=== PATIENT | female | born 1970 | race Caucasian/White ===

== ENCOUNTER 2017-05-22 22:05 | Inpatient (IN) | payer MEDICAID ==
[2017-05-22] MEDS ORDERED: LORazepam 2 MG/ML MDV IVPUSH ONE (22:31)
[2017-05-22] MEDS ORDERED: Thiamine 100 MG in Sodium Chloride 0.9% 100 ML IV ONE (22:31)
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
[2017-05-22] MEDS: Dextrose 5%-0.9% NaCl 1,000 ML IV SCH (22:43)
[2017-05-23] MEDS ORDERED: LORazepam 2 MG/ML MDV IVPUSH PRN (01:54)
[2017-05-23] MEDS ORDERED: Dextrose 5%-0.9% NaCl 1,000 ML IV SCH (02:00)
[2017-05-23] MEDS: Nicotine 7 MG/24 Hr Patch TRDERM SCH ×2 (02:26→09:28)
[2017-05-23] MEDS: Metoclopramide 10 MG/2 ML SDV IVPUSH PRN ×2 (04:41→15:41)
[2017-05-23] MEDS: LORazepam 2 MG/ML MDV IVPUSH PRN ×7 (04:41→23:07)
[2017-05-23] MEDS: Dextrose 5%-0.9% NaCl 1,000 ML IV SCH (04:52)
[2017-05-23] MEDS ORDERED: Polyethylene Glycol 3350 Powder 17 GM Packet PO PRN (06:34)
[2017-05-23] MEDS ORDERED: oxyCODONE 5 MG Tab PO PRN (06:34)
[2017-05-23] MEDS ORDERED: Albuterol/Ipratropium 3.0-0.5 MG/3 ML Neb Soln NEB PRN (06:34)
[2017-05-23] MEDS ORDERED: Ibuprofen 400 MG Tab PO PRN (06:34)
[2017-05-23] MEDS ORDERED: Docusate Sodium 100 MG Cap PO PRN (06:34)
[2017-05-23] MEDS ORDERED: Metoprolol Tartrate 5 MG/5 ML SDV IVPUSH PRN (06:46)
[2017-05-23] MEDS ORDERED: cloNIDine 0.1 MG Tab PO PRN (06:48)
[2017-05-23] MEDS ORDERED: hydrALAZINE 10 MG Tab PO PRN (06:49)
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
[2017-05-23] MEDS ORDERED: Topiramate 25 MG Tab PO SCH (09:00)
[2017-05-23] MEDS: Potassium Chloride 10% 20 MEQ/15 ML Soln 30 ML UD Cup PO SCH ×3 (09:27→17:27)
[2017-05-23] MEDS: Folic Acid 1 MG Tab PO SCH (09:27)
[2017-05-23] MEDS: Thiamine 100 MG Tab PO SCH (09:28)
[2017-05-23] MEDS: Magnesium Oxide 400 MG Tab PO SCH ×2 (09:28→13:27)
[2017-05-23] MEDS: Ondansetron 4 MG/2 ML SDV IV PRN ×2 (09:28→17:32)
[2017-05-23] MEDS: Famotidine 20 MG Tab PO SCH ×2 (09:28→20:19)
[2017-05-23] MEDS: Sodium Chloride 0.9% 1,000 ML IV SCH ×2 (11:45→22:03)
[2017-05-23] MEDS: Multivitamins,Therapeutic Tab PO SCH (11:50)
[2017-05-23] MEDS: QUEtiapine 25 MG Tab PO SCH (20:18)
[2017-05-23] MEDS: Topiramate 25 MG Tab PO SCH (20:19)
[2017-05-23] MEDS: Citalopram 20 MG Tab PO SCH (20:19)
[2017-05-24] MEDS: Temazepam 7.5 MG Cap PO PRN ×2 (00:27→22:46)
[2017-05-24] MEDS: LORazepam 2 MG/ML MDV IVPUSH PRN ×4 (00:29→09:11)
[2017-05-24] MEDS: Sodium Chloride 0.9% 1,000 ML IV SCH ×2 (08:04→18:09)
[2017-05-24] MEDS ORDERED: hydrALAZINE 20 MG/ML SDV IVPUSH PRN (09:06)
[2017-05-24] MEDS: Multivitamins,Therapeutic Tab PO SCH (09:09)
[2017-05-24] MEDS: Topiramate 25 MG Tab PO SCH ×2 (09:09→21:06)
[2017-05-24] MEDS: Thiamine 100 MG Tab PO SCH (09:09)
[2017-05-24] MEDS: Folic Acid 1 MG Tab PO SCH (09:10)
[2017-05-24] MEDS: Citalopram 20 MG Tab PO SCH (09:10)
[2017-05-24] MEDS: Famotidine 20 MG Tab PO SCH ×2 (09:10→21:06)
[2017-05-24] MEDS: Nicotine 7 MG/24 Hr Patch TRDERM SCH (09:17)
[2017-05-24] MEDS ORDERED: Magnesium Sulfate/Water 2 GM in Premix Bag 1 BAG IV ONE (10:00)
[2017-05-24] MEDS: Potassium Chloride 20 MEQ Tab.ER PO SCH ×2 (10:45→21:07)
--- NOTE | 2017-05-24 12:48 | PCM.PN ---
- General Info Date of Service: 05/24/17 Admission Dx/Problem (Free Text): Admission Diagnosis/Problem Admission Diagnosis/Problem Suicidal ideation Subjective Update: Patient seen and examined bedside this morning with the nurse. Patient states that she still feels depressed and "crappy". Vital still remain stable at this time. Functional Status: Reports: Pain Controlled, Tolerating Diet, Ambulating, Urinating. Denies: New Symptoms - Review of Systems General: Reports: Weakness HEENT: Reports: No Symptoms Pulmonary: Reports: No Symptoms Cardiovascular: Reports: No Symptoms Gastrointestinal: Reports: No Symptoms Genitourinary: Reports: No Symptoms Musculoskeletal: Reports: No Symptoms Skin: Reports: No Symptoms Neurological: Reports: No Symptoms Psychiatric: Reports: Depression, Suicidal Ideation - Patient Data Vitals - Most Recent: Last Vital Signs Temp 97.4 F 05/24/17 08:00 Pulse 82 05/24/17 04:00 Resp 16 05/24/17 08:00 BP 142/88 H 05/24/17 08:00 Pulse Ox 92 L 05/24/17 08:00 Weight - Most Recent: 65.771 kg I&O - Last 24 Hours: Intake & Output 05/23/17 05/24/17 05/24/17 22:59 06:59 14:59 Intake Total 2947 1559 200 Output Total 602 700 500 Balance 2345 859 -300 Lab Results Last 24 Hours: Laboratory Results - last 24 hr 05/24/17 05/24/17 Range/Units 05:35 05:35 WBC 4.02 (3.98-10.04) K/mm3 RBC 3.66 L (3.98-5.22) M/mm3 Hgb 12.7 (11.2-15.7) gm/L Hct 37.9 (34.1-44.9) % MCV 103.6 H (79.4-94.8) fl MCH 34.7 H (25.6-32.2) pg MCHC 33.5 (32.2-35.5) g/dl RDW Std Deviation 50.3 H (36.4-46.3) fL Plt Count 77 L (182-369) K/mm3 MPV 11.3 (9.4-12.3) fl Neut % (Auto) 53.0 (34.0-71.1) % Lymph % (Auto) 29.9 (19.3-51.7) % [place] % (Auto) 12.4 (4.7-12.5) % Eos % (Auto) 4.2 (0.7-5.8) Baso % (Auto) 0.5 (0.1-1.2) % Neut # (Auto) 2.13 (1.56-6.13) K/mm3 Lymph # (Auto) 1.20 (1.18-3.74) K/mm3 [place] # (Auto) 0.50 H (0.24-0.36) K/mm3 Eos # (Auto) 0.17 (0.04-0.36) K/mm3 Baso # (Auto) 0.02 (0.01-0.08) K/mm3 Manual Slide Review Abnormal smear Sodium 140 (136-145) mEq/L Potassium 3.4 L (3.5-5.1) mEq/L Chloride 107 (98-107) mEq/L Carbon Dioxide 22 (21-32) mEq/L Anion Gap 14.4 (5-15) BUN 5 L (7-18) mg/dL Creatinine 0.5 L (0.55-1.02) mg/dL Est Cr Clr Drug Dosing 122.69 mL/min Estimated GFR (MDRD) > 60 (>60) mL/min BUN/Creatinine Ratio 10.0 L (14-18) Glucose 83 (74-106) mg/dL Calcium 8.1 L (8.5-10.1) mg/dL Magnesium 1.3 L (1.8-2.4) mg/dl Med Orders - Current: Current Medications Albuterol/Ipratropium (Duoneb 3.0-0.5 Mg/3 Ml) 3 ml NEB Q4H PRN PRN Reason: Shortness Of Breath/wheezing Citalopram Hydrobromide (Celexa) 20 mg PO DAILY [facility] Last Admin: 05/24/17 09:10 Dose: 20 mg Docusate Sodium (Colace) 100 mg PO BID PRN PRN Reason: Constipation Famotidine (Pepcid) 20 mg PO BID [facility] Last Admin: 05/24/17 09:10 Dose: 20 mg Folic Acid (Folic Acid) 1 mg PO DAILY [facility] Last Admin: 05/24/17 09:10 Dose: 1 mg Hydralazine HCl (Apresoline) 10 mg IVPUSH Q2H PRN PRN Reason: Hypertension Sodium Chloride (Normal Saline) 1,000 mls @ 100 mls/hr IV ASDIRECTED [facility] Last Admin: 05/24/17 08:04 Dose: 100 mls/hr Ibuprofen (Motrin) 400 mg PO Q6H PRN PRN Reason: Pain (mild 1-3) Last Admin: 05/24/17 04:29 Dose: 400 mg Lorazepam (Ativan) 0 mg PO ASDIRECTED [facility] PRN Reason: Protocol Metoclopramide HCl (Reglan) 7.5 mg IVPUSH Q6H PRN PRN Reason: Nausea/Vomiting Last Admin: 05/23/17 15:41 Dose: 7.5 mg Metoprolol Tartrate (Lopressor) 5 mg IVPUSH Q4H PRN PRN Reason: Tachycardia Multivitamins (Thera) 1 each PO DAILY [facility] Last Admin: 05/24/17 09:09 Dose: 1 each Nicotine (Habitrol) 7 mg TRDERM DAILY [facility] Last Admin: 05/24/17 09:17 Dose: Not Given Ondansetron HCl (Zofran Odt) 4 mg PO Q4H PRN PRN Reason: nausea, able to take PO Ondansetron HCl (Zofran) 4 mg IV Q4H PRN PRN Reason: Nausea/Vomiting Last Admin: 05/23/17 17:32 Dose: 4 mg Polyethylene Glycol (Miralax) 17 gm PO DAILY PRN PRN Reason: Constipation Potassium Chloride (Klor-Con M20) 20 meq PO BID [facility] Stop: 05/25/17 21:01 Last Admin: 05/24/17 10:45 Dose: 20 meq Quetiapine Fumarate (Seroquel) 50 mg PO BEDTIME [facility] Last Admin: 05/23/17 20:18 Dose: 50 mg Senna/Docusate Sodium (Senna Plus) 1 tab PO BID PRN PRN Reason: Constipation Temazepam (Restoril) 7.5 mg PO BEDTIME PRN PRN Reason: Sleep Last Admin: 05/24/17 00:27 Dose: 7.5 mg Thiamine HCl (Vitamin B-1) 100 mg PO DAILY [facility] Last Admin: 05/24/17 09:09 Dose: 100 mg Topiramate (Topamax) 25 mg PO BID [facility] Last Admin: 05/24/17 09:09 Dose: 25 mg Discontinued Medications Clonidine HCl (Catapres) 0.1 mg PO Q4H PRN PRN Reason: Agitation Last Admin: 05/23/17 20:18 Dose: 0.1 mg Hydralazine HCl (Apresoline) 10 mg PO Q4H PRN PRN Reason: Hypertension Dextrose/Sodium Chloride (Dextrose 5%-Normal Saline) 1,000 mls @ 150 mls/hr IV ASDIRECTED [facility] Last Admin: 05/23/17 04:52 Dose: 150 mls/hr Thiamine HCl 100 mg/ Sodium (Chloride) 101 mls @ 202 mls/hr IV ONETIME ONE Stop: 05/22/17 22:32 Last Admin: 05/22/17 22:48 Dose: 202 mls/hr Dextrose/Sodium Chloride (Dextrose 5%-Normal Saline) 1,000 mls @ 150 mls/hr IV ASDIRECTED [facility] Magnesium Sulfate 2 gm/ Premix 50 mls @ 25 mls/hr IV ONETIME ONE Stop: 05/24/17 11:59 Last Admin: 05/24/17 10:46 Dose: 25 mls/hr Lorazepam (Ativan) 1 mg IVPUSH ONETIME ONE Stop: 05/22/17 22:32 Last Admin: 05/22/17 22:41 Dose: 1 mg Lorazepam (Ativan) 1 mg IVPUSH Q2H PRN PRN Reason: Withdrawal Symptoms Last Admin: 05/23/17 02:25 Dose: 1 mg Lorazepam (Ativan) 1 - 3 mg IVPUSH Q1H PRN; Protocol PRN Reason: Withdrawl Symptoms Last Admin: 05/24/17 09:11 Dose: 1 mg Magnesium Oxide (Magnesium Oxide) 400 mg PO Q4HR [facility] Stop: 05/23/17 13:01 Last Admin: 05/23/17 13:27 Dose: 400 mg Oxycodone HCl (Oxycodone) 5 mg PO Q4H PRN PRN Reason: Pain (moderate 4-6) Potassium Chloride (Potassium Chloride) 40 meq PO Q4HR [facility] Stop: 05/23/17 17:01 Last Admin: 05/23/17 17:27 Dose: 40 meq Topiramate (Topamax) 25 mg PO BID [facility] - Exam General: Alert, Oriented HEENT: Pupils Equal, Pupils Reactive, EOMI, Mucous Membr. Moist/[place] Neck: Supple Lungs: Clear to Auscultation, Normal Respiratory Effort Cardiovascular: Regular Rate, Regular Rhythm GI/Abdominal Exam: Normal Bowel Sounds, Soft, Non-Tender, No Organomegaly, No Distention, No Abnormal Bruit, No Mass, Pelvis Stable (Female) Exam: Deferred Back Exam: Normal Inspection, Full Range of Motion Extremities: Normal Inspection, Normal Range of Motion, Non-Tender, No Pedal Edema, Normal Capillary Refill Peripheral Pulses: 2+: Carotid (L), Carotid (R), Brachial (L), Brachial (R), Radial (L), Radial (R), Femoral (L), Femoral (R), Popliteal (L), Popliteal (R), Posterior Tibial (L), Posterior Tibial (R), Dorsalis Pedis (L), Dorsalis Pedis ( R) Skin: Warm, Dry, Intact Neurological: No New Focal Deficit Psy/Mental Status: Alert, Depressed, Suicidal Ideation, Withdrawal Symptoms - Problem List & Annotations (1) Alcohol withdrawal syndrome SNOMED Code(s): 964860158 Code(s): F10.239 - ALCOHOL DEPENDENCE WITH WITHDRAWAL, UNSPECIFIED Status: Acute Priority: High Current Visit: Yes (2) Depression with suicidal ideation SNOMED Code(s): 92015419 Code(s): F32.9 - MAJOR DEPRESSIVE DISORDER, SINGLE EPISODE, UNSPECIFIED; R45.851 - SUICIDAL IDEATIONS Status: Acute Priority: High Current Visit: Yes (3) Hypokalemia SNOMED Code(s): 83113142 Code(s): E87.6 - HYPOKALEMIA Status: Acute Priority: High Current Visit : Yes (4) Hypomagnesemia SNOMED Code(s): 815780141 Code(s): E83.42 - HYPOMAGNESEMIA Status: Acute Priority: High Current Visit: Yes - Problem List Review Problem List Initiated/Reviewed/Updated: Yes - My Orders Last 24 Hours: My Active Orders 05/24/17 09:06 hydrALAZINE [Apresoline] 10 mg IVPUSH Q2H PRN 05/24/17 09:09 CIWAA Assessment [RC] Q4H Notify Provider [RC] PRN 05/24/17 09:15 LORazepam [Ativan] See Protocol PO ASDIRECTED 05/24/17 09:45 Potassium Chloride [Klor-Con M20] 20 meq PO BID - Assessment Assessment:: 1. Alcohol withdrawal syndrome. 2. Suicidal ideation. 3. Hypokalemia. 4. Hypomagnesemia. 5. Chronic alcohol dependence. 6. Generalized anxiety disorder. - Plan Plan:: 1. Continue ICU management with one-to-one observation. For suicidal precautions. 2. Continue CIWA protocol according to CIWA scale. 3. Seizure precautions. 4. DVT prophylaxis with Lovenox. 5. Substance abuse counselor consults in chart. 6. Psychiatric consult with Dr. Mortensen. 7. Discharge planning. 8. Code Status: Full Code
--- NOTE | 2017-05-24 12:50 | CONS ---
CONSULTING PHYSICIAN: Liam Mortensen MD DATE OF CONSULTATION: 05/23/2017 This is a 60-minute inpatient clinical event. IDENTIFICATION: The patient is a 47-year-old female who was admitted to the [facility] in [place], [place] on 05/22/2017. She is seen for psychiatric evaluation. CHIEF COMPLAINT: "We had a couple of people in our family recently. It has been really difficult for me." HISTORY OF PRESENT ILLNESS: The patient is a 47-year-old female, admitted to the [facility] MICU on 05/22/2017 with a BAL of 0.36. There were concerns that the patient had become suicidal and after being evaluated in the ER was subsequently admitted and placed on the MICU. The patient is stating she has been drinking about 2 bottles of wine per day. She states "I drink because I feel depressed and anxious and have panic attacks." The patient states that she sleeps poorly. She is denying that she is suicidal or homicidal, but staffs are reporting that part of the reason she was admitted is that she had called police and stated that she was thinking of killing herself. Again, she is denying that she is suicidal or homicidal on the unit. She denies any psychotic, delusional, or paranoid symptoms. She is alert and oriented x2 to person and place, but does not know the date with clarity. She states that she has been on Celexa in the past and this medication has worked to help with her mood and she states that she would "like to do something" to help her feel better. She also acknowledges her drinking is a problem and she states that she did have a period of sobriety in 2014 and she felt better when she was not drinking and she is open to options for going for treatment at this point in time. MEDICATIONS: At the time of presentation is none. ALLERGIES: No known drug allergies. PAST MEDICAL HISTORY: 1. Alcohol-related seizure x1 in the past back in 2014. 2. History of jaundice secondary to alcoholic hepatitis. REVIEW OF SYSTEMS: Aside from neuro and GI, all other major organ systems are negative at this point in time for acute difficulties or complications. FAMILY PSYCHIATRIC AND CD HISTORY: The patient reports father had a history of anxiety and depression. She had a sister who had a history of anxiety and bipolar affective disease and also committed suicide when the patient was still 26 years of age. She still thinks about this event and the loss of her sister quite a bit per patient report. PAST PSYCHIATRIC AND CD HISTORY: The patient denies any previous psychiatric hospitalizations. Reports 2 chemical dependency treatment for alcohol. Longest sobriety was back in 2015 for a few months after treatment. She reports that she has most recently been using 2 bottles of wine per day. Does have detox admissions in the past. Denies ever having attended AA. Reports 2 suicide attempts in the past, but this is when she was very young. Denies any self-injurious behaviors or eating disorder history. PAST PSYCHIATRIC DIAGNOSIS: Includes PTSD and bipolar affective disease. PAST PSYCHIATRIC MEDICATIONS: Include Cymbalta which was ineffective. Celexa did work. Ativan and Paxil did not work. SOCIAL HISTORY: The patient is born in [place], raised in [place], [place]. She is 4th of 5 siblings. The patient's parents were throughout her childhood and adolescent. Father worked in [employer]. Mother was a computer systems architect. The patient's highest level of education is a high school diploma. She had been working in the [employer] business. She has been x2, x2. Has 1 child from each of the marriages. She has been in current relationship for 6 months. Her boyfriend works in construction. She has been living in [place] for the past 2 months after moving out to [place] from [place] with her boyfriend. Denies any prior service or current legal difficulties. She does not have a gnosticism. Denies any interest at this point in time. MENTAL STATUS EXAM: The patient is a 47-year-old white female in no apparent distress. Speech is of regular rate and rhythm. The patient is cognitively oriented x2 to person and place, but not to date. Psychomotor activity is within normal limits. There is no abnormal motor movements or tics observed. Gait and station are not observed. This patient is bedbound during the course of the interview. Mood is depressed and tired. Affect consistent with stated mood, but cooperative overall for the purposes of the inpatient psychiatric consult. There is no behavioral or stated evidence of acute suicidal or homicidal ideation. No acute psychotic, delusional, or paranoid symptoms. Thought processes significant for some thought blocking. However, there are no acute manic symptoms or loose associations evident. Judgment and insight appear somewhat impaired at the moment secondary to her poor cognition and withdrawal process. The patient's experience in motivation for help however appears fair to good. VITALS: 133/90, 93, 22, 98.6 degrees. IMPRESSION: Stella I. 1. Alcohol dependence, F10.20. 2. Major depressive disorder, recurrent, F33.3. 3. Anxiety disorder, NOS F41.9. 4. Rule out PTSD. Stella II: None. Stella III. 1. Symptoms of alcohol withdrawal. 2. Alcohol-related seizure x1 in the past in 2014. 3. History of jaundice secondary to probable alcohol hepatitis per patient report. Stella IV: Severe. Stella V: 50. PLAN: 1. Sobriety. 2. Begin trial of Celexa 20 mg at bedtime to help with mood. 3. Begin Seroquel 50 mg at bedtime to help with clarity of thought, anxiety reduction, sleep initiation and maintenance. 4. Begin Topamax 25 mg b.i.d. for mood stability and seizure prophylaxis. 5. Gastric supplementation. 6. Thiamine supplementation. 7. Ativan per [facility] protocol. 8. AA rep to visit the patient while on the unit. 9. Pastoral guidance. 10.CD consult to assess the patient and research potential treatment options for the patient. 11.Continue one to one as patient had reported suicidality prior to admission until patient can be further stabilized and re-eval by Primary Medical Treatment Team. 12.We will continue to follow up with the patient on as needed basis while she remains on the inpatient MICU. 13.We will follow up with the patient sooner if there are complications in the interim. 14.Recommend that when patient is discharged back to the community, she will follow up with Outpatient Psychiatry to assess her overall function efficacy of her current psychiatric medication regimen. 15.Crisis plan is in place. [facility] /[id number]
[2017-05-24] MEDS: Ondansetron 4 MG/2 ML SDV IV PRN (14:34)
[2017-05-24] MEDS: LORazepam 1 MG Tab PO SCH ×2 (14:47→18:09)
[2017-05-24] MEDS ORDERED: LORazepam 1 MG Tab PO ONE (20:44)
[2017-05-24] MEDS: QUEtiapine 25 MG Tab PO SCH (21:06)
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
[2017-05-24] MEDS ORDERED: LORazepam 2 MG/ML MDV IVPUSH ONE (22:37)
[2017-05-24] MEDS ORDERED: LORazepam 2 MG/ML MDV ONE (22:38)
[2017-05-24] MEDS: Ondansetron 4 MG Tab.DIS PO PRN (22:47)
[2017-05-25] MEDS ORDERED: LORazepam 2 MG/ML MDV IVPUSH ONE (00:32)
[2017-05-25] MEDS: Thiamine 100 MG Tab PO SCH (09:13)
[2017-05-25] MEDS: Folic Acid 1 MG Tab PO SCH (09:14)
[2017-05-25] MEDS: Famotidine 20 MG Tab PO SCH ×2 (09:14→20:54)
[2017-05-25] MEDS: Citalopram 20 MG Tab PO SCH (09:14)
[2017-05-25] MEDS: Topiramate 25 MG Tab PO SCH ×2 (09:14→20:54)
[2017-05-25] MEDS: Potassium Chloride 20 MEQ Tab.ER PO SCH ×2 (09:14→20:54)
[2017-05-25] MEDS: Multivitamins,Therapeutic Tab PO SCH (09:14)
[2017-05-25] MEDS: Nicotine 7 MG/24 Hr Patch TRDERM SCH (09:15)
--- NOTE | 2017-05-25 13:17 | PCM.PN ---
- General Info Date of Service: 05/25/17 Functional Status: Reports: Ambulating - Review of Systems General: Reports: No Symptoms HEENT: Reports: No Symptoms Pulmonary: Reports: No Symptoms Cardiovascular: Reports: No Symptoms Gastrointestinal: Reports: No Symptoms Genitourinary: Reports: No Symptoms Musculoskeletal: Reports: No Symptoms Skin: Reports: No Symptoms Neurological: Reports: No Symptoms Psychiatric: Reports: Anxiety - Patient Data Vitals - Most Recent: Last Vital Signs Temp 36.4 C 05/25/17 09:20 Pulse 77 05/25/17 09:20 Resp 18 05/25/17 03:16 BP 127/81 05/25/17 09:20 Pulse Ox 95 05/25/17 09:20 Weight - Most Recent: 70.477 kg I&O - Last 24 Hours: Intake & Output 05/24/17 05/25/17 05/25/17 22:59 06:59 14:59 Intake Total 1941 784 320 Output Total 1900 400 Balance 41 384 320 Lab Results Last 24 Hours: Laboratory Results - last 24 hr 05/25/17 05/25/17 Range/Units 04:50 04:50 WBC 4.46 (3.98-10.04) K/mm3 RBC 3.85 L (3.98-5.22) M/mm3 Hgb 13.1 (11.2-15.7) gm/L Hct 39.1 (34.1-44.9) % MCV 101.6 H (79.4-94.8) fl MCH 34.0 H (25.6-32.2) pg MCHC 33.5 (32.2-35.5) g/dl RDW Std Deviation 49.2 H (36.4-46.3) fL Plt Count 92 L (182-369) K/mm3 MPV 11.2 (9.4-12.3) fl Neut % (Auto) 51.7 (34.0-71.1) % Lymph % (Auto) 29.8 (19.3-51.7) % [place] % (Auto) 14.3 H (4.7-12.5) % Eos % (Auto) 3.6 (0.7-5.8) Baso % (Auto) 0.4 (0.1-1.2) % Neut # (Auto) 2.30 (1.56-6.13) K/mm3 Lymph # (Auto) 1.33 (1.18-3.74) K/mm3 [place] # (Auto) 0.64 H (0.24-0.36) K/mm3 Eos # (Auto) 0.16 (0.04-0.36) K/mm3 Baso # (Auto) 0.02 (0.01-0.08) K/mm3 Manual Slide Review Abnormal smear Sodium 140 (136-145) mEq/L Potassium 3.8 (3.5-5.1) mEq/L Chloride 108 H (98-107) mEq/L Carbon Dioxide 20 L (21-32) mEq/L Anion Gap 15.8 H (5-15) BUN 6 L (7-18) mg/dL Creatinine 0.6 (0.55-1.02) mg/dL Est Cr Clr Drug Dosing 102.25 mL/min Estimated GFR (MDRD) > 60 (>60) mL/min BUN/Creatinine Ratio 10.0 L (14-18) Glucose 84 (74-106) mg/dL Calcium 8.5 (8.5-10.1) mg/dL Magnesium 1.8 (1.8-2.4) mg/dl Med Orders - Current: Current Medications Albuterol/Ipratropium (Duoneb 3.0-0.5 Mg/3 Ml) 3 ml NEB Q4H PRN PRN Reason: Shortness Of Breath/wheezing Citalopram Hydrobromide (Celexa) 20 mg PO DAILY [facility] Last Admin: 05/25/17 09:14 Dose: 20 mg Docusate Sodium (Colace) 100 mg PO BID PRN PRN Reason: Constipation Famotidine (Pepcid) 20 mg PO BID [facility] Last Admin: 05/25/17 09:14 Dose: 20 mg Folic Acid (Folic Acid) 1 mg PO DAILY [facility] Last Admin: 05/25/17 09:14 Dose: 1 mg Hydralazine HCl (Apresoline) 10 mg IVPUSH Q2H PRN PRN Reason: Hypertension Ibuprofen (Motrin) 400 mg PO Q6H PRN PRN Reason: Pain (mild 1-3) Last Admin: 05/24/17 04:29 Dose: 400 mg Lorazepam (Ativan) 0 mg PO ASDIRECTED [facility] PRN Reason: Protocol Last Admin: 05/24/17 18:09 Dose: 1 mg Metoclopramide HCl (Reglan) 7.5 mg IVPUSH Q6H PRN PRN Reason: Nausea/Vomiting Last Admin: 05/23/17 15:41 Dose: 7.5 mg Metoprolol Tartrate (Lopressor) 5 mg IVPUSH Q4H PRN PRN Reason: Tachycardia Multivitamins (Thera) 1 each PO DAILY [facility] Last Admin: 05/25/17 09:14 Dose: 1 each Nicotine (Habitrol) 7 mg TRDERM DAILY [facility] Last Admin: 05/25/17 09:15 Dose: Not Given Ondansetron HCl (Zofran Odt) 4 mg PO Q4H PRN PRN Reason: nausea, able to take PO Last Admin: 05/24/17 22:47 Dose: 4 mg Ondansetron HCl (Zofran) 4 mg IV Q4H PRN PRN Reason: Nausea/Vomiting Last Admin: 05/24/17 14:34 Dose: 4 mg Polyethylene Glycol (Miralax) 17 gm PO DAILY PRN PRN Reason: Constipation Potassium Chloride (Klor-Con M20) 20 meq PO BID [facility] Stop: 05/25/17 21:01 Last Admin: 05/25/17 09:14 Dose: 20 meq Quetiapine Fumarate (Seroquel) 50 mg PO BEDTIME [facility] Last Admin: 05/24/17 21:06 Dose: 50 mg Senna/Docusate Sodium (Senna Plus) 1 tab PO BID PRN PRN Reason: Constipation Temazepam (Restoril) 7.5 mg PO BEDTIME PRN PRN Reason: Sleep Last Admin: 05/24/17 22:46 Dose: 7.5 mg Thiamine HCl (Vitamin B-1) 100 mg PO DAILY [facility] Last Admin: 05/25/17 09:13 Dose: 100 mg Topiramate (Topamax) 25 mg PO BID [facility] Last Admin: 05/25/17 09:14 Dose: 25 mg Discontinued Medications Clonidine HCl (Catapres) 0.1 mg PO Q4H PRN PRN Reason: Agitation Last Admin: 05/23/17 20:18 Dose: 0.1 mg Hydralazine HCl (Apresoline) 10 mg PO Q4H PRN PRN Reason: Hypertension Dextrose/Sodium Chloride (Dextrose 5%-Normal Saline) 1,000 mls @ 150 mls/hr IV ASDIRECTED [facility] Last Admin: 05/23/17 04:52 Dose: 150 mls/hr Thiamine HCl 100 mg/ Sodium (Chloride) 101 mls @ 202 mls/hr IV ONETIME ONE Stop: 05/22/17 22:32 Last Admin: 05/22/17 22:48 Dose: 202 mls/hr Dextrose/Sodium Chloride (Dextrose 5%-Normal Saline) 1,000 mls @ 150 mls/hr IV ASDIRECTED [facility] Sodium Chloride (Normal Saline) 1,000 mls @ 100 mls/hr IV ASDIRECTED [facility] Last Infusion: 05/24/17 23:06 Dose: 0 mls/hr Magnesium Sulfate 2 gm/ Premix 50 mls @ 25 mls/hr IV ONETIME ONE Stop: 05/24/17 11:59 Last Admin: 05/24/17 10:46 Dose: 25 mls/hr Lorazepam (Ativan) 1 mg IVPUSH ONETIME ONE Stop: 05/22/17 22:32 Last Admin: 05/22/17 22:41 Dose: 1 mg Lorazepam (Ativan) 1 mg IVPUSH Q2H PRN PRN Reason: Withdrawal Symptoms Last Admin: 05/23/17 02:25 Dose: 1 mg Lorazepam (Ativan) 1 - 3 mg IVPUSH Q1H PRN; Protocol PRN Reason: Withdrawl Symptoms Last Admin: 05/24/17 09:11 Dose: 1 mg Lorazepam (Ativan) 1 mg PO ONETIME ONE Stop: 05/24/17 20:45 Last Admin: 05/24/17 21:06 Dose: 1 mg Lorazepam (Ativan) 2 mg IVPUSH ONETIME ONE Stop: 05/24/17 22:38 Last Admin: 05/24/17 22:47 Dose: 2 mg Lorazepam (Ativan) Confirm Administered Dose 2 mg .ROUTE .STK-MED ONE Stop: 05/24/17 22:39 Last Admin: 05/24/17 23:06 Dose: Not Given Lorazepam (Ativan) 2 mg IVPUSH ONETIME ONE Stop: 05/25/17 00:33 Last Admin: 05/25/17 00:44 Dose: 2 mg Magnesium Oxide (Magnesium Oxide) 400 mg PO Q4HR [facility] Stop: 05/23/17 13:01 Last Admin: 05/23/17 13:27 Dose: 400 mg Oxycodone HCl (Oxycodone) 5 mg PO Q4H PRN PRN Reason: Pain (moderate 4-6) Potassium Chloride (Potassium Chloride) 40 meq PO Q4HR [facility] Stop: 05/23/17 17:01 Last Admin: 05/23/17 17:27 Dose: 40 meq Topiramate (Topamax) 25 mg PO BID [facility] - Exam Quality Assessment: DVT Prophylaxis General: Alert, Oriented, Cooperative HEENT: Pupils Equal, Pupils Reactive Neck: Supple, Trachea Midline Lungs: Clear to Auscultation, Normal Respiratory Effort Cardiovascular: Regular Rate GI/Abdominal Exam: Normal Bowel Sounds, Soft, Non-Tender, No Organomegaly (Female) Exam: Deferred Back Exam: Normal Inspection Extremities: Normal Inspection Skin: Warm Neurological: No New Focal Deficit, Normal Speech Psy/Mental Status: Alert - Problem List Review Problem List Initiated/Reviewed/Updated: Yes - Assessment Assessment:: 1. Alcohol withdrawal syndrome. 2. Suicidal ideation. 3. Hypokalemia. 4. Hypomagnesemia. 5. Chronic alcohol dependence. 6. Generalized anxiety disorder. - Plan Plan:: 1. Continue ICU management with one-to-one observation. For suicidal precautions. 2. Continue CIWA protocol according to CIWA scale. 3. Seizure precautions. 4. DVT prophylaxis with Lovenox. 5. Substance abuse counselor consults in chart. 6. Psychiatric consult with Dr. Mortensen. 7. Discharge planning. 8. Code Status: Full Code
[2017-05-25] MEDS ORDERED: Magnesium Sulfate/Water 2 GM in Premix Bag 1 BAG IV SCH (17:15)
[2017-05-25] MEDS: QUEtiapine 25 MG Tab PO SCH (20:53)
[2017-05-26] MEDS: Folic Acid 1 MG Tab PO SCH (09:19)
[2017-05-26] MEDS: Citalopram 20 MG Tab PO SCH (09:19)
[2017-05-26] MEDS: Nicotine 7 MG/24 Hr Patch TRDERM SCH (09:20)
[2017-05-26] MEDS: Multivitamins,Therapeutic Tab PO SCH (09:20)
[2017-05-26] MEDS: Famotidine 20 MG Tab PO SCH ×2 (09:20→20:52)
[2017-05-26] MEDS: Topiramate 25 MG Tab PO SCH ×2 (09:21→20:52)
[2017-05-26] MEDS: Thiamine 100 MG Tab PO SCH (09:21)
--- NOTE | 2017-05-26 12:25 | PCM.PN ---
- General Info Date of Service: 05/26/17 Functional Status: Reports: Tolerating Diet - Review of Systems General: Reports: No Symptoms HEENT: Reports: No Symptoms Pulmonary: Reports: No Symptoms Cardiovascular: Reports: No Symptoms Gastrointestinal: Reports: No Symptoms Genitourinary: Reports: No Symptoms Musculoskeletal: Reports: No Symptoms Skin: Reports: No Symptoms Neurological: Reports: No Symptoms Psychiatric: Reports: No Symptoms - Patient Data Vitals - Most Recent: Last Vital Signs Temp 36.6 C 05/26/17 09:12 Pulse 74 05/26/17 09:12 Resp 16 05/26/17 09:12 BP 104/85 05/26/17 09:12 Pulse Ox 92 L 05/26/17 09:12 Weight - Most Recent: 62.794 kg I&O - Last 24 Hours: Intake & Output 05/25/17 05/26/17 05/26/17 22:59 06:59 14:59 Intake Total 41 200 120 Output Total 300 Balance -259 200 120 Lab Results Last 24 Hours: Laboratory Results - last 24 hr 05/26/17 05/26/17 Range/Units 07:15 07:15 WBC 5.12 (3.98-10.04) K/mm3 RBC 4.00 (3.98-5.22) M/mm3 Hgb 13.8 (11.2-15.7) gm/L Hct 40.4 (34.1-44.9) % MCV 101.0 H (79.4-94.8) fl MCH 34.5 H (25.6-32.2) pg MCHC 34.2 (32.2-35.5) g/dl RDW Std Deviation 48.9 H (36.4-46.3) fL Plt Count 102 L (182-369) K/mm3 MPV 10.9 (9.4-12.3) fl Neut % (Auto) 54.5 (34.0-71.1) % Lymph % (Auto) 25.4 (19.3-51.7) % [place] % (Auto) 14.6 H (4.7-12.5) % Eos % (Auto) 4.7 (0.7-5.8) Baso % (Auto) 0.6 (0.1-1.2) % Neut # (Auto) 2.79 (1.56-6.13) K/mm3 Lymph # (Auto) 1.30 (1.18-3.74) K/mm3 [place] # (Auto) 0.75 H (0.24-0.36) K/mm3 Eos # (Auto) 0.24 (0.04-0.36) K/mm3 Baso # (Auto) 0.03 (0.01-0.08) K/mm3 Sodium 140 (136-145) mEq/L Potassium 3.6 (3.5-5.1) mEq/L Chloride 108 H (98-107) mEq/L Carbon Dioxide 20 L (21-32) mEq/L Anion Gap 15.6 H (5-15) BUN 10 (7-18) mg/dL Creatinine 0.6 (0.55-1.02) mg/dL Est Cr Clr Drug Dosing 102.25 mL/min Estimated GFR (MDRD) > 60 (>60) mL/min BUN/Creatinine Ratio 16.7 (14-18) Glucose 85 (74-106) mg/dL Calcium 8.5 (8.5-10.1) mg/dL Magnesium 1.9 (1.8-2.4) mg/dl Med Orders - Current: Current Medications Albuterol/Ipratropium (Duoneb 3.0-0.5 Mg/3 Ml) 3 ml NEB Q4H PRN PRN Reason: Shortness Of Breath/wheezing Citalopram Hydrobromide (Celexa) 20 mg PO DAILY [facility] Last Admin: 05/26/17 09:19 Dose: 20 mg Docusate Sodium (Colace) 100 mg PO BID PRN PRN Reason: Constipation Famotidine (Pepcid) 20 mg PO BID [facility] Last Admin: 05/26/17 09:20 Dose: 20 mg Folic Acid (Folic Acid) 1 mg PO DAILY [facility] Last Admin: 05/26/17 09:19 Dose: 1 mg Hydralazine HCl (Apresoline) 10 mg IVPUSH Q2H PRN PRN Reason: Hypertension Ibuprofen (Motrin) 400 mg PO Q6H PRN PRN Reason: Pain (mild 1-3) Last Admin: 05/24/17 04:29 Dose: 400 mg Metoprolol Tartrate (Lopressor) 5 mg IVPUSH Q4H PRN PRN Reason: Tachycardia Multivitamins (Thera) 1 each PO DAILY [facility] Last Admin: 05/26/17 09:20 Dose: 1 each Nicotine (Habitrol) 7 mg TRDERM DAILY [facility] Last Admin: 05/26/17 09:20 Dose: Not Given Ondansetron HCl (Zofran Odt) 4 mg PO Q4H PRN PRN Reason: nausea, able to take PO Last Admin: 05/24/17 22:47 Dose: 4 mg Polyethylene Glycol (Miralax) 17 gm PO DAILY PRN PRN Reason: Constipation Quetiapine Fumarate (Seroquel) 50 mg PO BEDTIME [facility] Last Admin: 05/25/17 20:53 Dose: 50 mg Senna/Docusate Sodium (Senna Plus) 1 tab PO BID PRN PRN Reason: Constipation Temazepam (Restoril) 7.5 mg PO BEDTIME PRN PRN Reason: Sleep Last Admin: 05/24/17 22:46 Dose: 7.5 mg Thiamine HCl (Vitamin B-1) 100 mg PO DAILY [facility] Last Admin: 05/26/17 09:21 Dose: 100 mg Topiramate (Topamax) 25 mg PO BID [facility] Last Admin: 05/26/17 09:21 Dose: 25 mg Discontinued Medications Clonidine HCl (Catapres) 0.1 mg PO Q4H PRN PRN Reason: Agitation Last Admin: 05/23/17 20:18 Dose: 0.1 mg Hydralazine HCl (Apresoline) 10 mg PO Q4H PRN PRN Reason: Hypertension Dextrose/Sodium Chloride (Dextrose 5%-Normal Saline) 1,000 mls @ 150 mls/hr IV ASDIRECTED [facility] Last Admin: 05/23/17 04:52 Dose: 150 mls/hr Thiamine HCl 100 mg/ Sodium (Chloride) 101 mls @ 202 mls/hr IV ONETIME ONE Stop: 05/22/17 22:32 Last Admin: 05/22/17 22:48 Dose: 202 mls/hr Dextrose/Sodium Chloride (Dextrose 5%-Normal Saline) 1,000 mls @ 150 mls/hr IV ASDIRECTED [facility] Sodium Chloride (Normal Saline) 1,000 mls @ 100 mls/hr IV ASDIRECTED [facility] Last Infusion: 05/24/17 23:06 Dose: 0 mls/hr Magnesium Sulfate 2 gm/ Premix 50 mls @ 25 mls/hr IV ONETIME ONE Stop: 05/24/17 11:59 Last Admin: 05/24/17 10:46 Dose: 25 mls/hr Magnesium Sulfate 2 gm/ Premix 50 mls @ 25 mls/hr IV ASDIRECTED [facility] Stop: 05/25/17 19:14 Last Admin: 05/25/17 17:27 Dose: 25 mls/hr Lorazepam (Ativan) 1 mg IVPUSH ONETIME ONE Stop: 05/22/17 22:32 Last Admin: 05/22/17 22:41 Dose: 1 mg Lorazepam (Ativan) 1 mg IVPUSH Q2H PRN PRN Reason: Withdrawal Symptoms Last Admin: 05/23/17 02:25 Dose: 1 mg Lorazepam (Ativan) 1 - 3 mg IVPUSH Q1H PRN; Protocol PRN Reason: Withdrawl Symptoms Last Admin: 05/24/17 09:11 Dose: 1 mg Lorazepam (Ativan) 0 mg PO ASDIRECTED [facility] PRN Reason: Protocol Last Admin: 05/24/17 18:09 Dose: 1 mg Lorazepam (Ativan) 1 mg PO ONETIME ONE Stop: 05/24/17 20:45 Last Admin: 05/24/17 21:06 Dose: 1 mg Lorazepam (Ativan) 2 mg IVPUSH ONETIME ONE Stop: 05/24/17 22:38 Last Admin: 05/24/17 22:47 Dose: 2 mg Lorazepam (Ativan) Confirm Administered Dose 2 mg .ROUTE .STK-MED ONE Stop: 05/24/17 22:39 Last Admin: 05/24/17 23:06 Dose: Not Given Lorazepam (Ativan) 2 mg IVPUSH ONETIME ONE Stop: 05/25/17 00:33 Last Admin: 05/25/17 00:44 Dose: 2 mg Magnesium Oxide (Magnesium Oxide) 400 mg PO Q4HR [facility] Stop: 05/23/17 13:01 Last Admin: 05/23/17 13:27 Dose: 400 mg Metoclopramide HCl (Reglan) 7.5 mg IVPUSH Q6H PRN PRN Reason: Nausea/Vomiting Last Admin: 05/23/17 15:41 Dose: 7.5 mg Ondansetron HCl (Zofran) 4 mg IV Q4H PRN PRN Reason: Nausea/Vomiting Last Admin: 05/24/17 14:34 Dose: 4 mg Oxycodone HCl (Oxycodone) 5 mg PO Q4H PRN PRN Reason: Pain (moderate 4-6) Potassium Chloride (Potassium Chloride) 40 meq PO Q4HR [facility] Stop: 05/23/17 17:01 Last Admin: 05/23/17 17:27 Dose: 40 meq Potassium Chloride (Klor-Con M20) 20 meq PO BID [facility] Stop: 05/25/17 21:01 Last Admin: 05/25/17 20:54 Dose: 20 meq Topiramate (Topamax) 25 mg PO BID [facility] - Exam Quality Assessment: DVT Prophylaxis General: Alert, Oriented, No Acute Distress HEENT: Pupils Equal, Pupils Reactive, EOMI Neck: Supple, Trachea Midline, No JVD Lungs: Normal Respiratory Effort Cardiovascular: Regular Rate, Regular Rhythm GI/Abdominal Exam: Normal Bowel Sounds, Soft, Non-Tender, No Organomegaly, No Distention (Female) Exam: Deferred Back Exam: Normal Inspection Extremities: Normal Inspection Skin: Warm Neurological: No New Focal Deficit Psy/Mental Status: Alert - Problem List Review Problem List Initiated/Reviewed/Updated: Yes - Assessment Assessment:: 1. Alcohol withdrawal syndrome. 2. Suicidal ideation. 3. Hypokalemia, supplementation needed. 4. Hypomagnesemia, no recent level. 5. Chronic alcohol dependence. 6. Generalized anxiety disorder. - Plan Plan:: 1. DC ICU (06/25/17) management transfer to [facility] [place] with one-to-one observation for suicidal precautions. 2. Continue CIWA protocol according to CIWA scale. 3. Seizure precautions. 4. DVT prophylaxis with Lovenox. 5. Substance abuse counselor consults in chart. 6. Psychiatric consult with Dr. Mortensen. 7. Discharge planning--->LOS>96 hours awaiting placement. 8. Code Status: Full Code
[2017-05-26] MEDS: Ondansetron 4 MG Tab.DIS PO PRN (12:54)
[2017-05-26] MEDS: Potassium Chloride 20 MEQ Tab.ER PO SCH (20:51)
[2017-05-26] MEDS: QUEtiapine 25 MG Tab PO SCH (20:51)
[2017-05-27] MEDS: Citalopram 20 MG Tab PO SCH (08:59)
[2017-05-27] MEDS: Nicotine 7 MG/24 Hr Patch TRDERM SCH (08:59)
[2017-05-27] MEDS: Folic Acid 1 MG Tab PO SCH (08:59)
[2017-05-27] MEDS: Potassium Chloride 20 MEQ Tab.ER PO SCH ×2 (08:59→20:59)
[2017-05-27] MEDS: Famotidine 20 MG Tab PO SCH ×2 (09:00→20:59)
[2017-05-27] MEDS: Topiramate 25 MG Tab PO SCH ×2 (09:00→20:59)
[2017-05-27] MEDS: Multivitamins,Therapeutic Tab PO SCH (09:00)
[2017-05-27] MEDS: Thiamine 100 MG Tab PO SCH (09:00)
[2017-05-27] MEDS: Magnesium Sulfate/Water 2 GM in Premix Bag 1 BAG IV ONE ×2 (11:13→11:20)
--- NOTE | 2017-05-27 14:19 | PCM.PN ---
- General Info Date of Service: 05/27/17 Functional Status: Reports: Tolerating Diet - Review of Systems General: Reports: No Symptoms HEENT: Reports: No Symptoms Pulmonary: Reports: No Symptoms Cardiovascular: Reports: No Symptoms Gastrointestinal: Reports: No Symptoms Genitourinary: Reports: No Symptoms Musculoskeletal: Reports: No Symptoms Skin: Reports: No Symptoms Neurological: Reports: No Symptoms, Weakness Psychiatric: Reports: Other (drowsiness) - Patient Data Vitals - Most Recent: Last Vital Signs Temp 36.6 C 05/27/17 12:20 Pulse 74 05/27/17 12:20 Resp 14 05/27/17 12:20 BP 112/87 05/27/17 12:20 Pulse Ox 94 L 05/27/17 12:20 Weight - Most Recent: 63.095 kg I&O - Last 24 Hours: Intake & Output 05/26/17 05/27/17 05/27/17 22:59 06:59 14:59 Intake Total 510 700 120 Output Total 950 750 Balance -440 -50 120 Lab Results Last 24 Hours: Laboratory Results - last 24 hr 05/27/17 Range/Units 05:55 Sodium 139 (136-145) mEq/L Potassium 3.8 (3.5-5.1) mEq/L Chloride 108 H (98-107) mEq/L Carbon Dioxide 19 L (21-32) mEq/L Anion Gap 15.8 H (5-15) BUN 12 (7-18) mg/dL Creatinine 0.7 (0.55-1.02) mg/dL Est Cr Clr Drug Dosing 87.64 mL/min Estimated GFR (MDRD) > 60 (>60) mL/min BUN/Creatinine Ratio 17.1 (14-18) Glucose 116 H (74-106) mg/dL Calcium 8.6 (8.5-10.1) mg/dL Magnesium 1.7 L (1.8-2.4) mg/dl Med Orders - Current: Current Medications Albuterol/Ipratropium (Duoneb 3.0-0.5 Mg/3 Ml) 3 ml NEB Q4H PRN PRN Reason: Shortness Of Breath/wheezing Citalopram Hydrobromide (Celexa) 20 mg PO BEDTIME [facility] Docusate Sodium (Colace) 100 mg PO BID PRN PRN Reason: Constipation Last Admin: 05/27/17 09:01 Dose: 100 mg Famotidine (Pepcid) 20 mg PO BID [facility] Last Admin: 05/27/17 09:00 Dose: 20 mg Folic Acid (Folic Acid) 1 mg PO DAILY [facility] Last Admin: 05/27/17 08:59 Dose: 1 mg Hydralazine HCl (Apresoline) 10 mg IVPUSH Q2H PRN PRN Reason: Hypertension Ibuprofen (Motrin) 400 mg PO Q6H PRN PRN Reason: Pain (mild 1-3) Last Admin: 05/24/17 04:29 Dose: 400 mg Metoprolol Tartrate (Lopressor) 5 mg IVPUSH Q4H PRN PRN Reason: Tachycardia Multivitamins (Thera) 1 each PO DAILY [facility] Last Admin: 05/27/17 09:00 Dose: 1 each Nicotine (Habitrol) 7 mg TRDERM DAILY [facility] Last Admin: 05/27/17 08:59 Dose: Not Given Ondansetron HCl (Zofran Odt) 4 mg PO Q4H PRN PRN Reason: nausea, able to take PO Last Admin: 05/26/17 12:54 Dose: 4 mg Polyethylene Glycol (Miralax) 17 gm PO DAILY PRN PRN Reason: Constipation Potassium Chloride (Klor-Con M20) 40 meq PO BID [facility] Stop: 05/28/17 09:01 Last Admin: 05/27/17 08:59 Dose: 40 meq Quetiapine Fumarate (Seroquel) 25 mg PO BEDTIME [facility] Senna/Docusate Sodium (Senna Plus) 1 tab PO BID PRN PRN Reason: Constipation Thiamine HCl (Vitamin B-1) 100 mg PO DAILY [facility] Last Admin: 05/27/17 09:00 Dose: 100 mg Topiramate (Topamax) 25 mg PO BID [facility] Last Admin: 05/27/17 09:00 Dose: 25 mg Discontinued Medications Citalopram Hydrobromide (Celexa) 20 mg PO DAILY [facility] Last Admin: 05/27/17 08:59 Dose: 20 mg Clonidine HCl (Catapres) 0.1 mg PO Q4H PRN PRN Reason: Agitation Last Admin: 05/23/17 20:18 Dose: 0.1 mg Hydralazine HCl (Apresoline) 10 mg PO Q4H PRN PRN Reason: Hypertension Dextrose/Sodium Chloride (Dextrose 5%-Normal Saline) 1,000 mls @ 150 mls/hr IV ASDIRECTED [facility] Last Admin: 05/23/17 04:52 Dose: 150 mls/hr Thiamine HCl 100 mg/ Sodium (Chloride) 101 mls @ 202 mls/hr IV ONETIME ONE Stop: 05/22/17 22:32 Last Admin: 05/22/17 22:48 Dose: 202 mls/hr Dextrose/Sodium Chloride (Dextrose 5%-Normal Saline) 1,000 mls @ 150 mls/hr IV ASDIRECTED [facility] Sodium Chloride (Normal Saline) 1,000 mls @ 100 mls/hr IV ASDIRECTED [facility] Last Infusion: 05/24/17 23:06 Dose: 0 mls/hr Magnesium Sulfate 2 gm/ Premix 50 mls @ 25 mls/hr IV ONETIME ONE Stop: 05/24/17 11:59 Last Admin: 05/24/17 10:46 Dose: 25 mls/hr Magnesium Sulfate 2 gm/ Premix 50 mls @ 25 mls/hr IV ASDIRECTED [facility] Stop: 05/25/17 19:14 Last Admin: 05/25/17 17:27 Dose: 25 mls/hr Magnesium Sulfate 2 gm/ Premix 50 mls @ 25 mls/hr IV ONETIME ONE Stop: 05/27/17 11:41 Last Admin: 05/27/17 11:20 Dose: 25 mls/hr Lorazepam (Ativan) 1 mg IVPUSH ONETIME ONE Stop: 05/22/17 22:32 Last Admin: 05/22/17 22:41 Dose: 1 mg Lorazepam (Ativan) 1 mg IVPUSH Q2H PRN PRN Reason: Withdrawal Symptoms Last Admin: 05/23/17 02:25 Dose: 1 mg Lorazepam (Ativan) 1 - 3 mg IVPUSH Q1H PRN; Protocol PRN Reason: Withdrawl Symptoms Last Admin: 05/24/17 09:11 Dose: 1 mg Lorazepam (Ativan) 0 mg PO ASDIRECTED [facility] PRN Reason: Protocol Last Admin: 05/24/17 18:09 Dose: 1 mg Lorazepam (Ativan) 1 mg PO ONETIME ONE Stop: 05/24/17 20:45 Last Admin: 05/24/17 21:06 Dose: 1 mg Lorazepam (Ativan) 2 mg IVPUSH ONETIME ONE Stop: 05/24/17 22:38 Last Admin: 05/24/17 22:47 Dose: 2 mg Lorazepam (Ativan) Confirm Administered Dose 2 mg .ROUTE .STK-MED ONE Stop: 05/24/17 22:39 Last Admin: 05/24/17 23:06 Dose: Not Given Lorazepam (Ativan) 2 mg IVPUSH ONETIME ONE Stop: 05/25/17 00:33 Last Admin: 05/25/17 00:44 Dose: 2 mg Magnesium Oxide (Magnesium Oxide) 400 mg PO Q4HR [facility] Stop: 05/23/17 13:01 Last Admin: 05/23/17 13:27 Dose: 400 mg Metoclopramide HCl (Reglan) 7.5 mg IVPUSH Q6H PRN PRN Reason: Nausea/Vomiting Last Admin: 05/23/17 15:41 Dose: 7.5 mg Ondansetron HCl (Zofran) 4 mg IV Q4H PRN PRN Reason: Nausea/Vomiting Last Admin: 05/24/17 14:34 Dose: 4 mg Oxycodone HCl (Oxycodone) 5 mg PO Q4H PRN PRN Reason: Pain (moderate 4-6) Potassium Chloride (Potassium Chloride) 40 meq PO Q4HR [facility] Stop: 05/23/17 17:01 Last Admin: 05/23/17 17:27 Dose: 40 meq Potassium Chloride (Klor-Con M20) 20 meq PO BID [facility] Stop: 05/25/17 21:01 Last Admin: 05/25/17 20:54 Dose: 20 meq Quetiapine Fumarate (Seroquel) 50 mg PO BEDTIME [facility] Last Admin: 05/26/17 20:51 Dose: 50 mg Temazepam (Restoril) 7.5 mg PO BEDTIME PRN PRN Reason: Sleep Last Admin: 05/24/17 22:46 Dose: 7.5 mg Topiramate (Topamax) 25 mg PO BID [facility] - Exam Quality Assessment: DVT Prophylaxis General: Other (drowsiness) HEENT: Pupils Equal, Pupils Reactive, EOMI Neck: Supple, Trachea Midline, No JVD Lungs: Normal Respiratory Effort Cardiovascular: Regular Rate GI/Abdominal Exam: Normal Bowel Sounds, Soft, Non-Tender, No Organomegaly, No Distention (Female) Exam: Deferred Back Exam: Normal Inspection Extremities: Normal Inspection, Normal Range of Motion, No Pedal Edema Skin: Warm Neurological: No New Focal Deficit Psy/Mental Status: Other (drowsiness with recent psychiatric med ) - Problem List Review Problem List Initiated/Reviewed/Updated: Yes - My Orders Last 24 Hours: My Active Orders 05/26/17 21:00 Potassium Chloride [Klor-Con M20] 40 meq PO BID 05/28/17 05:00 BMP [BASIC METABOLIC PANEL,BMP] [CHEM] DAILY CBC WITH AUTO DIFF [HEME] DAILY 05/29/17 05:00 CBC WITH AUTO DIFF [HEME] DAILY 05/30/17 05:00 CBC WITH AUTO DIFF [HEME] DAILY - Assessment Assessment:: 1. Alcohol withdrawal syndrome 2. Suicidal Ideation 3. Hypokalemia, supplementation needed. 4. Hypomagnesemia, no recent level. 5. Chronic alcohol dependence. 6. Generalized anxiety disorder. 7. Drowsiness with recent change in psychiatric meds. - Plan Plan:: 1. MS danew, continue one-to-one observation for suicidal precautions. 2. Continue CIWA protocol according to CIWA scale. 3. Seizure precautions. 4. DVT prophylaxis with Lovenox. 5. Substance abuse counselor consults in chart. 6. Psychiatric consult with Dr. Mortensen. 7. Discharge planning--->LOS>96 hours awaiting placement; [facility] transfer postponed with SE from medications.. 8. Code Status: Full Code
[2017-05-28] MEDS: Topiramate 25 MG Tab PO SCH ×2 (09:16→20:01)
[2017-05-28] MEDS: Folic Acid 1 MG Tab PO SCH (09:16)
[2017-05-28] MEDS: Potassium Chloride 20 MEQ Tab.ER PO SCH (09:17)
[2017-05-28] MEDS: Thiamine 100 MG Tab PO SCH (09:17)
[2017-05-28] MEDS: Multivitamins,Therapeutic Tab PO SCH (09:17)
[2017-05-28] MEDS: Famotidine 20 MG Tab PO SCH ×2 (09:17→20:01)
[2017-05-28] MEDS: Nicotine 7 MG/24 Hr Patch TRDERM SCH (09:20)
--- NOTE | 2017-05-28 12:49 | PCM.PN ---
- General Info Date of Service: 05/28/17 Functional Status: Reports: Tolerating Diet, Ambulating, Other (feels groggy) - Review of Systems General: Reports: No Symptoms HEENT: Reports: No Symptoms Pulmonary: Reports: No Symptoms Cardiovascular: Reports: No Symptoms Gastrointestinal: Reports: No Symptoms Genitourinary: Reports: No Symptoms Musculoskeletal: Reports: No Symptoms Skin: Reports: No Symptoms Neurological: Reports: No Symptoms Psychiatric: Reports: No Symptoms - Patient Data Vitals - Most Recent: Last Vital Signs Temp 36.6 C 05/28/17 09:13 Pulse 77 05/28/17 09:13 Resp 16 05/28/17 09:13 BP 105/76 05/28/17 09:13 Pulse Ox 94 L 05/28/17 09:13 Weight - Most Recent: 63.004 kg I&O - Last 24 Hours: Intake & Output 05/27/17 05/28/17 05/28/17 22:59 06:59 14:59 Intake Total 2120 80 100 Output Total 900 625 Balance 1220 -545 100 Lab Results Last 24 Hours: Laboratory Results - last 24 hr 05/28/17 05/28/17 Range/Units 04:25 04:25 WBC 7.93 (3.98-10.04) K/mm3 RBC 4.20 (3.98-5.22) M/mm3 Hgb 14.4 (11.2-15.7) gm/L Hct 42.6 (34.1-44.9) % MCV 101.4 H (79.4-94.8) fl MCH 34.3 H (25.6-32.2) pg MCHC 33.8 (32.2-35.5) g/dl RDW Std Deviation 49.7 H (36.4-46.3) fL Plt Count 113 L (182-369) K/mm3 MPV 10.9 (9.4-12.3) fl Neut % (Auto) 51.5 (34.0-71.1) % Lymph % (Auto) 25.0 (19.3-51.7) % [place] % (Auto) 19.5 H (4.7-12.5) % Eos % (Auto) 3.3 (0.7-5.8) Baso % (Auto) 0.4 (0.1-1.2) % Neut # (Auto) 4.09 (1.56-6.13) K/mm3 Lymph # (Auto) 1.98 (1.18-3.74) K/mm3 [place] # (Auto) 1.55 H (0.24-0.36) K/mm3 Eos # (Auto) 0.26 (0.04-0.36) K/mm3 Baso # (Auto) 0.03 (0.01-0.08) K/mm3 Manual Slide Review Abnormal smear Sodium 138 (136-145) mEq/L Potassium 4.1 (3.5-5.1) mEq/L Chloride 106 (98-107) mEq/L Carbon Dioxide 19 L (21-32) mEq/L Anion Gap 17.1 H (5-15) BUN 10 (7-18) mg/dL Creatinine 0.6 (0.55-1.02) mg/dL Est Cr Clr Drug Dosing 102.25 mL/min Estimated GFR (MDRD) > 60 (>60) mL/min BUN/Creatinine Ratio 16.7 (14-18) Glucose 92 (74-106) mg/dL Calcium 9.1 (8.5-10.1) mg/dL Med Orders - Current: Current Medications Albuterol/Ipratropium (Duoneb 3.0-0.5 Mg/3 Ml) 3 ml NEB Q4H PRN PRN Reason: Shortness Of Breath/wheezing Citalopram Hydrobromide (Celexa) 20 mg PO BEDTIME [facility] Docusate Sodium (Colace) 100 mg PO BID PRN PRN Reason: Constipation Last Admin: 05/27/17 09:01 Dose: 100 mg Famotidine (Pepcid) 20 mg PO BID [facility] Last Admin: 05/28/17 09:17 Dose: 20 mg Folic Acid (Folic Acid) 1 mg PO DAILY [facility] Last Admin: 05/28/17 09:16 Dose: 1 mg Hydralazine HCl (Apresoline) 10 mg IVPUSH Q2H PRN PRN Reason: Hypertension Ibuprofen (Motrin) 400 mg PO Q6H PRN PRN Reason: Pain (mild 1-3) Last Admin: 05/24/17 04:29 Dose: 400 mg Metoprolol Tartrate (Lopressor) 5 mg IVPUSH Q4H PRN PRN Reason: Tachycardia Multivitamins (Thera) 1 each PO DAILY [facility] Last Admin: 05/28/17 09:17 Dose: 1 each Nicotine (Habitrol) 7 mg TRDERM DAILY [facility] Last Admin: 05/28/17 09:20 Dose: Not Given Ondansetron HCl (Zofran Odt) 4 mg PO Q4H PRN PRN Reason: nausea, able to take PO Last Admin: 05/26/17 12:54 Dose: 4 mg Polyethylene Glycol (Miralax) 17 gm PO DAILY PRN PRN Reason: Constipation Last Admin: 05/27/17 21:02 Dose: 17 gm Quetiapine Fumarate (Seroquel) 25 mg PO BEDTIME [facility] Senna/Docusate Sodium (Senna Plus) 1 tab PO BID PRN PRN Reason: Constipation Thiamine HCl (Vitamin B-1) 100 mg PO DAILY [facility] Last Admin: 05/28/17 09:17 Dose: 100 mg Topiramate (Topamax) 25 mg PO BID [facility] Last Admin: 05/28/17 09:16 Dose: 25 mg Discontinued Medications Chlordiazepoxide HCl (Librium) 5 mg PO ONETIME ONE Stop: 05/27/17 15:47 Last Admin: 05/27/17 16:41 Dose: 5 mg Citalopram Hydrobromide (Celexa) 20 mg PO DAILY [facility] Last Admin: 05/27/17 08:59 Dose: 20 mg Clonidine HCl (Catapres) 0.1 mg PO Q4H PRN PRN Reason: Agitation Last Admin: 05/23/17 20:18 Dose: 0.1 mg Hydralazine HCl (Apresoline) 10 mg PO Q4H PRN PRN Reason: Hypertension Dextrose/Sodium Chloride (Dextrose 5%-Normal Saline) 1,000 mls @ 150 mls/hr IV ASDIRECTED [facility] Last Admin: 05/23/17 04:52 Dose: 150 mls/hr Thiamine HCl 100 mg/ Sodium (Chloride) 101 mls @ 202 mls/hr IV ONETIME ONE Stop: 05/22/17 22:32 Last Admin: 05/22/17 22:48 Dose: 202 mls/hr Dextrose/Sodium Chloride (Dextrose 5%-Normal Saline) 1,000 mls @ 150 mls/hr IV ASDIRECTED [facility] Sodium Chloride (Normal Saline) 1,000 mls @ 100 mls/hr IV ASDIRECTED [facility] Last Infusion: 05/24/17 23:06 Dose: 0 mls/hr Magnesium Sulfate 2 gm/ Premix 50 mls @ 25 mls/hr IV ONETIME ONE Stop: 05/24/17 11:59 Last Admin: 05/24/17 10:46 Dose: 25 mls/hr Magnesium Sulfate 2 gm/ Premix 50 mls @ 25 mls/hr IV ASDIRECTED [facility] Stop: 05/25/17 19:14 Last Admin: 05/25/17 17:27 Dose: 25 mls/hr Magnesium Sulfate 2 gm/ Premix 50 mls @ 25 mls/hr IV ONETIME ONE Stop: 05/27/17 11:41 Last Admin: 05/27/17 11:20 Dose: 25 mls/hr Lorazepam (Ativan) 1 mg IVPUSH ONETIME ONE Stop: 05/22/17 22:32 Last Admin: 05/22/17 22:41 Dose: 1 mg Lorazepam (Ativan) 1 mg IVPUSH Q2H PRN PRN Reason: Withdrawal Symptoms Last Admin: 05/23/17 02:25 Dose: 1 mg Lorazepam (Ativan) 1 - 3 mg IVPUSH Q1H PRN; Protocol PRN Reason: Withdrawl Symptoms Last Admin: 05/24/17 09:11 Dose: 1 mg Lorazepam (Ativan) 0 mg PO ASDIRECTED [facility] PRN Reason: Protocol Last Admin: 05/24/17 18:09 Dose: 1 mg Lorazepam (Ativan) 1 mg PO ONETIME ONE Stop: 05/24/17 20:45 Last Admin: 05/24/17 21:06 Dose: 1 mg Lorazepam (Ativan) 2 mg IVPUSH ONETIME ONE Stop: 05/24/17 22:38 Last Admin: 05/24/17 22:47 Dose: 2 mg Lorazepam (Ativan) Confirm Administered Dose 2 mg .ROUTE .STK-MED ONE Stop: 05/24/17 22:39 Last Admin: 05/24/17 23:06 Dose: Not Given Lorazepam (Ativan) 2 mg IVPUSH ONETIME ONE Stop: 05/25/17 00:33 Last Admin: 05/25/17 00:44 Dose: 2 mg Magnesium Oxide (Magnesium Oxide) 400 mg PO Q4HR [facility] Stop: 05/23/17 13:01 Last Admin: 05/23/17 13:27 Dose: 400 mg Metoclopramide HCl (Reglan) 7.5 mg IVPUSH Q6H PRN PRN Reason: Nausea/Vomiting Last Admin: 05/23/17 15:41 Dose: 7.5 mg Ondansetron HCl (Zofran) 4 mg IV Q4H PRN PRN Reason: Nausea/Vomiting Last Admin: 05/24/17 14:34 Dose: 4 mg Oxycodone HCl (Oxycodone) 5 mg PO Q4H PRN PRN Reason: Pain (moderate 4-6) Potassium Chloride (Potassium Chloride) 40 meq PO Q4HR [facility] Stop: 05/23/17 17:01 Last Admin: 05/23/17 17:27 Dose: 40 meq Potassium Chloride (Klor-Con M20) 20 meq PO BID [facility] Stop: 05/25/17 21:01 Last Admin: 05/25/17 20:54 Dose: 20 meq Potassium Chloride (Klor-Con M20) 40 meq PO BID [facility] Stop: 05/28/17 09:01 Last Admin: 05/28/17 09:17 Dose: 40 meq Quetiapine Fumarate (Seroquel) 50 mg PO BEDTIME [facility] Last Admin: 05/26/17 20:51 Dose: 50 mg Temazepam (Restoril) 7.5 mg PO BEDTIME PRN PRN Reason: Sleep Last Admin: 05/24/17 22:46 Dose: 7.5 mg Topiramate (Topamax) 25 mg PO BID [facility] - Exam Quality Assessment: DVT Prophylaxis General: Alert, Oriented, No Acute Distress HEENT: Pupils Equal, Pupils Reactive, EOMI Neck: Supple, Trachea Midline, No JVD Lungs: Clear to Auscultation, Normal Respiratory Effort Cardiovascular: Regular Rate, Regular Rhythm GI/Abdominal Exam: Normal Bowel Sounds, Soft, Non-Tender, No Organomegaly, No Distention (Female) Exam: Deferred Back Exam: Normal Inspection Extremities: Normal Inspection Skin: Warm Neurological: No New Focal Deficit Psy/Mental Status: Alert - Problem List Review Problem List Initiated/Reviewed/Updated: Yes - My Orders Last 24 Hours: My Active Orders 05/29/17 05:00 CBC WITH AUTO DIFF [HEME] DAILY FOLIC ACID [CHEM] Routine VITAMIN B12 [CHEM] Routine 05/30/17 05:00 CBC WITH AUTO DIFF [HEME] DAILY - Assessment Assessment:: 1. Alcohol withdrawal syndrome 2. Suicidal Ideation 3. Hypokalemia, correct as needed. 4. Hypomagnesemia, correct as needed. 5. Chronic alcohol dependence. 6. Generalized anxiety disorder. 7. Drowsiness with recent change in psychiatric meds-->[facility] when bed is available; DC excessive drowsiness with psych meds. - Plan Plan:: 1. MS tele, continue one-to-one observation for suicidal precautions. 2. CIWA protocol. 3. Seizure precautions. 4. DVT prophylaxis with Lovenox. 5. Substance abuse counselor consults in chart. 6. Psychiatric consult with Dr. Mortensen. 7. Discharge planning--->LOS>96 hours awaiting placement; [facility] transfer postponed with SE from medications; monitor and med adjustments as needed. 8. Code Status: Full Code
[2017-05-28] MEDS ORDERED: Magnesium Sulfate/Water 2 GM in Premix Bag 1 BAG IV ONE (12:51)
[2017-05-28] MEDS ORDERED: Ibuprofen 600 MG Tab PO PRN (13:27)
[2017-05-28] MEDS: Acetaminophen/Butalbital/Caffeine 325-50-40 MG Tab PO PRN (13:54)
[2017-05-28] MEDS: Citalopram 20 MG Tab PO SCH (20:01)
[2017-05-28] MEDS ORDERED: QUEtiapine 25 MG Tab PO SCH (21:00)
[2017-05-29] MEDS: Acetaminophen/Butalbital/Caffeine 325-50-40 MG Tab PO PRN ×2 (04:53→14:47)
[2017-05-29] MEDS: Thiamine 100 MG Tab PO SCH (08:47)
[2017-05-29] MEDS: Famotidine 20 MG Tab PO SCH ×2 (08:47→20:14)
[2017-05-29] MEDS: Folic Acid 1 MG Tab PO SCH (08:47)
[2017-05-29] MEDS: Topiramate 25 MG Tab PO SCH ×2 (08:47→20:14)
[2017-05-29] MEDS: Multivitamins,Therapeutic Tab PO SCH (08:47)
[2017-05-29] MEDS: Nicotine 7 MG/24 Hr Patch TRDERM SCH (08:48)
--- NOTE | 2017-05-29 11:11 | PCM.PN ---
- General Info Date of Service: 05/29/17 Functional Status: Reports: Tolerating Diet, Ambulating (unsteady gait) - Review of Systems General: Reports: Weakness HEENT: Reports: No Symptoms Pulmonary: Reports: No Symptoms Cardiovascular: Reports: No Symptoms Gastrointestinal: Reports: No Symptoms Genitourinary: Reports: No Symptoms Musculoskeletal: Reports: No Symptoms Skin: Reports: No Symptoms Neurological: Reports: No Symptoms Psychiatric: Reports: No Symptoms - Patient Data Vitals - Most Recent: Last Vital Signs Temp 36.4 C 05/29/17 09:00 Pulse 70 05/29/17 09:00 Resp 18 05/29/17 09:00 BP 99/61 05/29/17 09:00 Pulse Ox 94 L 05/29/17 09:00 Weight - Most Recent: 62.142 kg I&O - Last 24 Hours: Intake & Output 05/28/17 05/29/17 05/29/17 22:59 06:59 14:59 Intake Total 750 300 Output Total 300 850 Balance 450 -550 Lab Results Last 24 Hours: Laboratory Results - last 24 hr 05/29/17 05/29/17 05/29/17 Range/Units 05:13 05:13 05:13 WBC 6.89 (3.98-10.04) K/mm3 RBC 3.88 L (3.98-5.22) M/mm3 Hgb 13.6 (11.2-15.7) gm/L Hct 39.8 (34.1-44.9) % MCV 102.6 H (79.4-94.8) fl MCH 35.1 H (25.6-32.2) pg MCHC 34.2 (32.2-35.5) g/dl RDW Std Deviation 51.0 H (36.4-46.3) fL Plt Count 108 L (182-369) K/mm3 MPV 11.0 (9.4-12.3) fl Neut % (Auto) 47.0 (34.0-71.1) % Lymph % (Auto) 25.1 (19.3-51.7) % [place] % (Auto) 24.5 H (4.7-12.5) % Eos % (Auto) 3.0 (0.7-5.8) Baso % (Auto) 0.4 (0.1-1.2) % Neut # (Auto) 3.23 (1.56-6.13) K/mm3 Lymph # (Auto) 1.73 (1.18-3.74) K/mm3 [place] # (Auto) 1.69 H (0.24-0.36) K/mm3 Eos # (Auto) 0.21 (0.04-0.36) K/mm3 Baso # (Auto) 0.03 (0.01-0.08) K/mm3 Manual Slide Review Abnormal smear Magnesium 1.8 (1.8-2.4) mg/dl Vitamin B12 1296 H (193-986) pg/ml Folate 33.1 (8.6-58.9) ng/mL Med Orders - Current: Current Medications Acetaminophen/Butalbital/Caffeine (Fioricet 325-50-40 Mg) 1 tab PO Q6H PRN PRN Reason: Headache Last Admin: 05/29/17 04:53 Dose: 1 tab Albuterol/Ipratropium (Duoneb 3.0-0.5 Mg/3 Ml) 3 ml NEB Q4H PRN PRN Reason: Shortness Of Breath/wheezing Citalopram Hydrobromide (Celexa) 20 mg PO BEDTIME [facility] Last Admin: 05/28/17 20:01 Dose: 20 mg Docusate Sodium (Colace) 100 mg PO BID PRN PRN Reason: Constipation Last Admin: 05/27/17 09:01 Dose: 100 mg Famotidine (Pepcid) 20 mg PO BID [facility] Last Admin: 05/29/17 08:47 Dose: 20 mg Folic Acid (Folic Acid) 1 mg PO DAILY [facility] Last Admin: 05/29/17 08:47 Dose: 1 mg Hydralazine HCl (Apresoline) 10 mg IVPUSH Q2H PRN PRN Reason: Hypertension Ibuprofen (Motrin) 600 mg PO Q8H PRN PRN Reason: Pain Metoprolol Tartrate (Lopressor) 5 mg IVPUSH Q4H PRN PRN Reason: Tachycardia Multivitamins (Thera) 1 each PO DAILY [facility] Last Admin: 05/29/17 08:47 Dose: 1 each Nicotine (Habitrol) 7 mg TRDERM DAILY [facility] Last Admin: 05/29/17 08:48 Dose: Not Given Ondansetron HCl (Zofran Odt) 4 mg PO Q4H PRN PRN Reason: nausea, able to take PO Last Admin: 05/26/17 12:54 Dose: 4 mg Polyethylene Glycol (Miralax) 17 gm PO DAILY PRN PRN Reason: Constipation Last Admin: 05/27/17 21:02 Dose: 17 gm Quetiapine Fumarate (Seroquel) 25 mg PO BEDTIME [facility] Last Admin: 05/28/17 20:01 Dose: 25 mg Senna/Docusate Sodium (Senna Plus) 1 tab PO BID PRN PRN Reason: Constipation Thiamine HCl (Vitamin B-1) 100 mg PO DAILY [facility] Last Admin: 05/29/17 08:47 Dose: 100 mg Topiramate (Topamax) 25 mg PO BID [facility] Last Admin: 05/29/17 08:47 Dose: 25 mg Discontinued Medications Chlordiazepoxide HCl (Librium) 5 mg PO ONETIME ONE Stop: 05/27/17 15:47 Last Admin: 05/27/17 16:41 Dose: 5 mg Citalopram Hydrobromide (Celexa) 20 mg PO DAILY [facility] Last Admin: 05/27/17 08:59 Dose: 20 mg Clonidine HCl (Catapres) 0.1 mg PO Q4H PRN PRN Reason: Agitation Last Admin: 05/23/17 20:18 Dose: 0.1 mg Hydralazine HCl (Apresoline) 10 mg PO Q4H PRN PRN Reason: Hypertension Dextrose/Sodium Chloride (Dextrose 5%-Normal Saline) 1,000 mls @ 150 mls/hr IV ASDIRECTED [facility] Last Admin: 05/23/17 04:52 Dose: 150 mls/hr Thiamine HCl 100 mg/ Sodium (Chloride) 101 mls @ 202 mls/hr IV ONETIME ONE Stop: 05/22/17 22:32 Last Admin: 05/22/17 22:48 Dose: 202 mls/hr Dextrose/Sodium Chloride (Dextrose 5%-Normal Saline) 1,000 mls @ 150 mls/hr IV ASDIRECTED [facility] Sodium Chloride (Normal Saline) 1,000 mls @ 100 mls/hr IV ASDIRECTED [facility] Last Infusion: 05/24/17 23:06 Dose: 0 mls/hr Magnesium Sulfate 2 gm/ Premix 50 mls @ 25 mls/hr IV ONETIME ONE Stop: 05/24/17 11:59 Last Admin: 05/24/17 10:46 Dose: 25 mls/hr Magnesium Sulfate 2 gm/ Premix 50 mls @ 25 mls/hr IV ASDIRECTED [facility] Stop: 05/25/17 19:14 Last Admin: 05/25/17 17:27 Dose: 25 mls/hr Magnesium Sulfate 2 gm/ Premix 50 mls @ 25 mls/hr IV ONETIME ONE Stop: 05/27/17 11:41 Last Admin: 05/27/17 11:20 Dose: 25 mls/hr Magnesium Sulfate 2 gm/ Premix 50 mls @ 25 mls/hr IV ONETIME ONE Stop: 05/28/17 14:50 Last Admin: 05/28/17 13:12 Dose: 25 mls/hr Ibuprofen (Motrin) 400 mg PO Q6H PRN PRN Reason: Pain (mild 1-3) Last Admin: 05/24/17 04:29 Dose: 400 mg Lorazepam (Ativan) 1 mg IVPUSH ONETIME ONE Stop: 05/22/17 22:32 Last Admin: 05/22/17 22:41 Dose: 1 mg Lorazepam (Ativan) 1 mg IVPUSH Q2H PRN PRN Reason: Withdrawal Symptoms Last Admin: 05/23/17 02:25 Dose: 1 mg Lorazepam (Ativan) 1 - 3 mg IVPUSH Q1H PRN; Protocol PRN Reason: Withdrawl Symptoms Last Admin: 05/24/17 09:11 Dose: 1 mg Lorazepam (Ativan) 0 mg PO ASDIRECTED [facility] PRN Reason: Protocol Last Admin: 05/24/17 18:09 Dose: 1 mg Lorazepam (Ativan) 1 mg PO ONETIME ONE Stop: 05/24/17 20:45 Last Admin: 05/24/17 21:06 Dose: 1 mg Lorazepam (Ativan) 2 mg IVPUSH ONETIME ONE Stop: 05/24/17 22:38 Last Admin: 05/24/17 22:47 Dose: 2 mg Lorazepam (Ativan) Confirm Administered Dose 2 mg .ROUTE .STK-MED ONE Stop: 05/24/17 22:39 Last Admin: 05/24/17 23:06 Dose: Not Given Lorazepam (Ativan) 2 mg IVPUSH ONETIME ONE Stop: 05/25/17 00:33 Last Admin: 05/25/17 00:44 Dose: 2 mg Magnesium Oxide (Magnesium Oxide) 400 mg PO Q4HR [facility] Stop: 05/23/17 13:01 Last Admin: 05/23/17 13:27 Dose: 400 mg Metoclopramide HCl (Reglan) 7.5 mg IVPUSH Q6H PRN PRN Reason: Nausea/Vomiting Last Admin: 05/23/17 15:41 Dose: 7.5 mg Ondansetron HCl (Zofran) 4 mg IV Q4H PRN PRN Reason: Nausea/Vomiting Last Admin: 05/24/17 14:34 Dose: 4 mg Oxycodone HCl (Oxycodone) 5 mg PO Q4H PRN PRN Reason: Pain (moderate 4-6) Potassium Chloride (Potassium Chloride) 40 meq PO Q4HR [facility] Stop: 05/23/17 17:01 Last Admin: 05/23/17 17:27 Dose: 40 meq Potassium Chloride (Klor-Con M20) 20 meq PO BID [facility] Stop: 05/25/17 21:01 Last Admin: 05/25/17 20:54 Dose: 20 meq Potassium Chloride (Klor-Con M20) 40 meq PO BID [facility] Stop: 05/28/17 09:01 Last Admin: 05/28/17 09:17 Dose: 40 meq Quetiapine Fumarate (Seroquel) 50 mg PO BEDTIME [facility] Last Admin: 05/26/17 20:51 Dose: 50 mg Temazepam (Restoril) 7.5 mg PO BEDTIME PRN PRN Reason: Sleep Last Admin: 05/24/17 22:46 Dose: 7.5 mg Topiramate (Topamax) 25 mg PO BID [facility] - Exam Quality Assessment: DVT Prophylaxis General: Alert, Oriented, Cooperative, No Acute Distress HEENT: Pupils Equal, Pupils Reactive, EOMI Neck: Supple, Trachea Midline Lungs: Clear to Auscultation, Normal Respiratory Effort Cardiovascular: Regular Rate, Regular Rhythm GI/Abdominal Exam: Normal Bowel Sounds, Soft, Non-Tender, No Organomegaly, No Distention (Female) Exam: Deferred Back Exam: Normal Inspection Extremities: Normal Inspection Skin: Warm Neurological: No New Focal Deficit Psy/Mental Status: Alert - Problem List Review Problem List Initiated/Reviewed/Updated: Yes - My Orders Last 24 Hours: My Active Orders 05/28/17 13:26 Acetaminophen/Butalbital/Caff [Fioricet 325-50-40 MG] 1 tab PO Q6H PRN 05/28/17 13:27 Ibuprofen [Motrin] 600 mg PO Q8H PRN 05/30/17 05:00 CBC WITH AUTO DIFF [HEME] DAILY MG [MAGNESIUM] [CHEM] DAILY - Assessment Assessment:: 1. Alcohol withdrawal syndrome 2. Suicidal Ideation 3. Hypokalemia, correct as needed. 4. Hypomagnesemia, correct as needed. 5. Chronic alcohol dependence. 6. Generalized anxiety disorder. 7. Drowsiness with recent change in psychiatric meds-->[facility] when bed is available; psych meds have been adjusted today, is describing dizziness/ unsteady gait. - Plan Plan:: 1. MS doreen, continue one-to-one observation for suicidal precautions. 2. CIWA protocol. 3. Seizure precautions. 4. DVT prophylaxis with Lovenox. 5. Substance abuse counselor consults in chart. 6. Psychiatric consult with Dr. Mortensen. 7. Discharge planning--->LOS>96 hours awaiting placement; [facility] transfer postponed with SE from medications; monitor and med adjustments as needed. 8. Code Status: Full Code
[2017-05-29] MEDS ORDERED: Magnesium Sulfate/Water 2 GM in Premix Bag 1 BAG IV ONE (11:12)
[2017-05-29] MEDS ORDERED: QUEtiapine 25 MG Tab PO SCH (12:20)
[2017-05-29] MEDS: Citalopram 20 MG Tab PO SCH (20:15)
[2017-05-30] MEDS: Ondansetron 4 MG Tab.DIS PO PRN (01:23)
[2017-05-30] MEDS: Famotidine 20 MG Tab PO SCH (08:12)
[2017-05-30] MEDS: Thiamine 100 MG Tab PO SCH (08:12)
[2017-05-30] MEDS: Multivitamins,Therapeutic Tab PO SCH (08:12)
[2017-05-30] MEDS: Topiramate 25 MG Tab PO SCH (08:13)
[2017-05-30] MEDS: Folic Acid 1 MG Tab PO SCH (08:13)
[2017-05-30] MEDS: Nicotine 7 MG/24 Hr Patch TRDERM SCH (08:18)
[2017-05-30 12:11] VITALS: BP 114/69
[2017-05-30] MEDS ORDERED: LORazepam 2 MG/ML MDV IVPUSH ONE (13:20)
--- NOTE | 2017-05-30 14:21 | PCM.DCSUM1 ---
Discharge Summary - Hospital Course Free Text/Narrative:: 47 year old female picked up in [place], heavily dinking presented with alcohol withdrawal. She normally drinks 2 bottles of wine daily. Had suicidal and homicidal thoughts. LYUDMILA was documeted at 0.36. She was seen by substance abuse service as well as psych. The patient was treated medically for alcohol withdrawal, she is medically stable and will be transferred to the chemical dependency treatment unit. The patient was accepted by Dr Christiansen. Primary Dx Major depression Anxiety PTSD Alcohol withdrawal syndrome Disposition NDSH Medication See list Diet Heart Healthy Follow up TBD - Discharge Data Discharge Date: 05/30/17 Discharge Disposition: DC/Tfer to Psych Hosp/Unit 65 Condition: Good - Patient Summary/Data Consults: Consultations 05/23/17 06:34 Consult to Case Management [CONS] Routine Consult to Physician [CONS] Routine Consult to Humidifier Operator [CONS] Routine Consult to Spiritual Care [CONS] Routine 05/23/17 06:45 Consult for Substance Abuse [CONS] Routine - Patient Instructions Diet: Heart Healthy Diet Activity: As Tolerated Driving: Do Not Drive Showering/Bathing: May Shower Notify Provider of: Increased Pain - Discharge Plan Prescriptions/Med Rec: Citalopram [Celexa] 10 mg PO BEDTIME #30 tablet Famotidine [Pepcid] 20 mg PO BID #60 tablet Folic Acid 1 mg PO DAILY #30 tablet Ibuprofen [IJD: Ibuprofen] 600 mg PO Q8H PRN #30 tablet PRN Reason: Pain (Moderate 4-6) Multivitamins,Therapeutic [Thera] 1 each PO DAILY #30 tablet Nicotine [Habitrol] 7 mg TRDERM DAILY #30 patch QUEtiapine [SEROquel] 12.5 mg PO BEDTIME #15 tablet Thiamine [Vitamin B-1] 100 mg PO DAILY #30 tablet Topiramate [Topamax] 12.5 mg PO BID #30 tablet Home Medications: Home Meds Multivitamin [Multi-Vitamin Daily] 1 tab PO DAILY 05/24/17 [History] Vitamin E 400 unit PO BID 05/24/17 [History] Citalopram [Celexa] 10 mg PO BEDTIME #30 tablet 05/30/17 [Rx] Famotidine [Pepcid] 20 mg PO BID #60 tablet 05/30/17 [Rx] Folic Acid 1 mg PO DAILY #30 tablet 05/30/17 [Rx] Ibuprofen [IJD: Ibuprofen] 600 mg PO Q8H PRN #30 tablet 05/30/17 [Rx] Multivitamins,Therapeutic [Thera] 1 each PO DAILY #30 tablet 05/30/17 [Rx] Nicotine [Habitrol] 7 mg TRDERM DAILY #30 patch 05/30/17 [Rx] QUEtiapine [SEROquel] 12.5 mg PO BEDTIME #15 tablet 05/30/17 [Rx] Thiamine [Vitamin B-1] 100 mg PO DAILY #30 tablet 05/30/17 [Rx] Topiramate [Topamax] 12.5 mg PO BID #30 tablet 05/30/17 [Rx] Patient Handouts: Smoking Cessation, Tips for Success, [id number], Addiction and the Family, No-harm Safety Contract, Self-Destructive Behavior, Suicidal Feelings: How to Help Yourself, Finding Treatment for Addiction, Alcohol Withdrawal, [id number] Forms: ED Department Discharge Referrals: Liam Mortensen MD [Physician] - (Make a follow-up psychiatry appt. [phone]) PCP,None [Primary Care Provider] - - Discharge Summary/Plan Comment DC Time >30 min.: No - General Info Date of Service: 05/23/17 Functional Status: Reports: Tolerating Diet, Ambulating, Urinating - Review of Systems General: Reports: No Symptoms HEENT: Reports: No Symptoms Pulmonary: Reports: No Symptoms Cardiovascular: Reports: No Symptoms Gastrointestinal: Reports: No Symptoms Genitourinary: Reports: No Symptoms Musculoskeletal: Reports: No Symptoms Skin: Reports: No Symptoms Neurological: Reports: No Symptoms Psychiatric: Reports: No Symptoms - Patient Data Vitals - Most Recent: Last Vital Signs Temp 37.4 C 05/30/17 12:07 Pulse 62 05/30/17 12:07 Resp 16 05/30/17 12:07 BP 114/69 05/30/17 12:07 Pulse Ox 96 05/30/17 12:07 Weight - Most Recent: 62.006 kg I&O - Last 24 hours: Intake & Output 05/29/17 05/30/17 05/30/17 22:59 06:59 14:59 Intake Total 990 200 120 Output Total 100 Balance 990 100 120 Lab Results - Last 24 hrs: Laboratory Results - last 24 hr 05/30/17 05/30/17 Range/Units 05:40 05:40 WBC 7.39 (3.98-10.04) K/mm3 RBC 4.06 (3.98-5.22) M/mm3 Hgb 13.9 (11.2-15.7) gm/L Hct 41.2 (34.1-44.9) % MCV 101.5 H (79.4-94.8) fl MCH 34.2 H (25.6-32.2) pg MCHC 33.7 (32.2-35.5) g/dl RDW Std Deviation 49.7 H (36.4-46.3) fL Plt Count 123 L (182-369) K/mm3 MPV 11.0 (9.4-12.3) fl Neut % (Auto) 48.2 (34.0-71.1) % Lymph % (Auto) 23.0 (19.3-51.7) % Lander % (Auto) 24.9 H (4.7-12.5) % Eos % (Auto) 3.1 (0.7-5.8) Baso % (Auto) 0.5 (0.1-1.2) % Neut # (Auto) 3.56 (1.56-6.13) K/mm3 Lymph # (Auto) 1.70 (1.18-3.74) K/mm3 Lander # (Auto) 1.84 H (0.24-0.36) K/mm3 Eos # (Auto) 0.23 (0.04-0.36) K/mm3 Baso # (Auto) 0.04 (0.01-0.08) K/mm3 Manual Slide Review Abnormal smear Magnesium 1.7 L (1.8-2.4) mg/dl Med Orders - Current: Current Medications Discontinued Medications Acetaminophen/Butalbital/Caffeine (Fioricet 325-50-40 Mg) 1 tab PO Q6H PRN PRN Reason: Headache Last Admin: 05/29/17 14:47 Dose: 1 tab Albuterol/Ipratropium (Duoneb 3.0-0.5 Mg/3 Ml) 3 ml NEB Q4H PRN PRN Reason: Shortness Of Breath/wheezing Chlordiazepoxide HCl (Librium) 5 mg PO ONETIME ONE Stop: 05/27/17 15:47 Last Admin: 05/27/17 16:41 Dose: 5 mg Citalopram Hydrobromide (Celexa) 20 mg PO DAILY [facility] Last Admin: 05/27/17 08:59 Dose: 20 mg Citalopram Hydrobromide (Celexa) 20 mg PO BEDTIME [facility] Last Admin: 05/29/17 20:15 Dose: Not Given Clonidine HCl (Catapres) 0.1 mg PO Q4H PRN PRN Reason: Agitation Last Admin: 05/23/17 20:18 Dose: 0.1 mg Docusate Sodium (Colace) 100 mg PO BID PRN PRN Reason: Constipation Last Admin: 05/27/17 09:01 Dose: 100 mg Famotidine (Pepcid) 20 mg PO BID [facility] Last Admin: 05/30/17 08:12 Dose: 20 mg Folic Acid (Folic Acid) 1 mg PO DAILY [facility] Last Admin: 05/30/17 08:13 Dose: 1 mg Hydralazine HCl (Apresoline) 10 mg PO Q4H PRN PRN Reason: Hypertension Hydralazine HCl (Apresoline) 10 mg IVPUSH Q2H PRN PRN Reason: Hypertension Dextrose/Sodium Chloride (Dextrose 5%-Normal Saline) 1,000 mls @ 150 mls/hr IV ASDIRECTED [facility] Last Admin: 05/23/17 04:52 Dose: 150 mls/hr Thiamine HCl 100 mg/ Sodium (Chloride) 101 mls @ 202 mls/hr IV ONETIME ONE Stop: 05/22/17 22:32 Last Admin: 05/22/17 22:48 Dose: 202 mls/hr Dextrose/Sodium Chloride (Dextrose 5%-Normal Saline) 1,000 mls @ 150 mls/hr IV ASDIRECTED [facility] Sodium Chloride (Normal Saline) 1,000 mls @ 100 mls/hr IV ASDIRECTED [facility] Last Infusion: 05/24/17 23:06 Dose: 0 mls/hr Magnesium Sulfate 2 gm/ Premix 50 mls @ 25 mls/hr IV ONETIME ONE Stop: 05/24/17 11:59 Last Admin: 05/24/17 10:46 Dose: 25 mls/hr Magnesium Sulfate 2 gm/ Premix 50 mls @ 25 mls/hr IV ASDIRECTED [facility] Stop: 05/25/17 19:14 Last Admin: 05/25/17 17:27 Dose: 25 mls/hr Magnesium Sulfate 2 gm/ Premix 50 mls @ 25 mls/hr IV ONETIME ONE Stop: 05/27/17 11:41 Last Admin: 05/27/17 11:20 Dose: 25 mls/hr Magnesium Sulfate 2 gm/ Premix 50 mls @ 25 mls/hr IV ONETIME ONE Stop: 05/28/17 14:50 Last Admin: 05/28/17 13:12 Dose: 25 mls/hr Magnesium Sulfate 2 gm/ Premix 50 mls @ 25 mls/hr IV ONETIME ONE Stop: 05/29/17 13:11 Last Admin: 05/29/17 11:33 Dose: 25 mls/hr Ibuprofen (Motrin) 400 mg PO Q6H PRN PRN Reason: Pain (mild 1-3) Last Admin: 05/24/17 04:29 Dose: 400 mg Ibuprofen (Motrin) 600 mg PO Q8H PRN PRN Reason: Pain Lorazepam (Ativan) 1 mg IVPUSH ONETIME ONE Stop: 05/22/17 22:32 Last Admin: 05/22/17 22:41 Dose: 1 mg Lorazepam (Ativan) 1 mg IVPUSH Q2H PRN PRN Reason: Withdrawal Symptoms Last Admin: 05/23/17 02:25 Dose: 1 mg Lorazepam (Ativan) 1 - 3 mg IVPUSH Q1H PRN; Protocol PRN Reason: Withdrawl Symptoms Last Admin: 05/24/17 09:11 Dose: 1 mg Lorazepam (Ativan) 0 mg PO ASDIRECTED LAURA PRN Reason: Protocol Last Admin: 05/24/17 18:09 Dose: 1 mg Lorazepam (Ativan) 1 mg PO ONETIME ONE Stop: 05/24/17 20:45 Last Admin: 05/24/17 21:06 Dose: 1 mg Lorazepam (Ativan) 2 mg IVPUSH ONETIME ONE Stop: 05/24/17 22:38 Last Admin: 05/24/17 22:47 Dose: 2 mg Lorazepam (Ativan) Confirm Administered Dose 2 mg .ROUTE .STK-MED ONE Stop: 05/24/17 22:39 Last Admin: 05/24/17 23:06 Dose: Not Given Lorazepam (Ativan) 2 mg IVPUSH ONETIME ONE Stop: 05/25/17 00:33 Last Admin: 05/25/17 00:44 Dose: 2 mg Lorazepam (Ativan) 1 mg IVPUSH ONETIME ONE Stop: 05/30/17 13:21 Last Admin: 05/30/17 13:30 Dose: 1 mg Magnesium Oxide (Magnesium Oxide) 400 mg PO Q4HR [facility] Stop: 05/23/17 13:01 Last Admin: 05/23/17 13:27 Dose: 400 mg Metoclopramide HCl (Reglan) 7.5 mg IVPUSH Q6H PRN PRN Reason: Nausea/Vomiting Last Admin: 05/23/17 15:41 Dose: 7.5 mg Metoprolol Tartrate (Lopressor) 5 mg IVPUSH Q4H PRN PRN Reason: Tachycardia Multivitamins (Thera) 1 each PO DAILY [facility] Last Admin: 05/30/17 08:12 Dose: 1 each Nicotine (Habitrol) 7 mg TRDERM DAILY [facility] Last Admin: 05/30/17 08:18 Dose: Not Given Ondansetron HCl (Zofran Odt) 4 mg PO Q4H PRN PRN Reason: nausea, able to take PO Last Admin: 05/30/17 01:23 Dose: 4 mg Ondansetron HCl (Zofran) 4 mg IV Q4H PRN PRN Reason: Nausea/Vomiting Last Admin: 05/24/17 14:34 Dose: 4 mg Oxycodone HCl (Oxycodone) 5 mg PO Q4H PRN PRN Reason: Pain (moderate 4-6) Polyethylene Glycol (Miralax) 17 gm PO DAILY PRN PRN Reason: Constipation Last Admin: 05/27/17 21:02 Dose: 17 gm Potassium Chloride (Potassium Chloride) 40 meq PO Q4HR [facility] Stop: 05/23/17 17:01 Last Admin: 05/23/17 17:27 Dose: 40 meq Potassium Chloride (Klor-Con M20) 20 meq PO BID [facility] Stop: 05/25/17 21:01 Last Admin: 05/25/17 20:54 Dose: 20 meq Potassium Chloride (Klor-Con M20) 40 meq PO BID [facility] Stop: 05/28/17 09:01 Last Admin: 05/28/17 09:17 Dose: 40 meq Quetiapine Fumarate (Seroquel) 50 mg PO BEDTIME [facility] Last Admin: 05/26/17 20:51 Dose: 50 mg Quetiapine Fumarate (Seroquel) 25 mg PO BEDTIME [facility] Last Admin: 05/28/17 20:01 Dose: 25 mg Quetiapine Fumarate (Seroquel) 12.5 mg PO BEDTIME [facility] Last Admin: 05/29/17 20:15 Dose: 12.5 mg Senna/Docusate Sodium (Senna Plus) 1 tab PO BID PRN PRN Reason: Constipation Temazepam (Restoril) 7.5 mg PO BEDTIME PRN PRN Reason: Sleep Last Admin: 05/24/17 22:46 Dose: 7.5 mg Thiamine HCl (Vitamin B-1) 100 mg PO DAILY [facility] Last Admin: 05/30/17 08:12 Dose: 100 mg Topiramate (Topamax) 25 mg PO BID [facility] Topiramate (Topamax) 25 mg PO BID [facility] Last Admin: 05/29/17 08:47 Dose: 25 mg Topiramate (Topamax) 12.5 mg PO BID [facility] Last Admin: 05/30/17 08:13 Dose: 12.5 mg - Exam Quality Assessment: Reports: DVT Prophylaxis General: Reports: Alert, Oriented, Cooperative, No Acute Distress HEENT: Reports: Pupils Equal, Pupils Reactive, EOMI Neck: Reports: Supple, Trachea Midline Lungs: Reports: Normal Respiratory Effort Cardiovascular: Reports: Regular Rate, Regular Rhythm GI/Abdominal Exam: Normal Bowel Sounds, Soft, Non-Tender, No Organomegaly, No Distention (Female) Exam: Deferred Rectal (Female) Exam: Deferred Back Exam: Reports: Normal Inspection Extremities: Normal Inspection Skin: Reports: Warm Neurological: Reports: No New Focal Deficit Psy/Mental Status: Reports: Alert, Anxious, Depressed *Q Meaningful Use (DIS) - VTE *Q VTE Criteria *Q: - Stroke *Q Stroke Criteria *Q: - AMI *Q AMI Criteria *Q:
== END 2017-05-30 13:50 | DRG 897 ==
LOC: EDBD 22:05 → JD.ED 22:05 → JD.ICU 05-23 00:12 → JD.MS 05-25 06:47
PROVIDERS: ADMIT Hospitalist; ATTEND Hospitalist
DX: F10.239 Alcohol dependence with withdrawal, unspecified (principal); R45.851 Suicidal ideations; E46 Unspecified protein-calorie malnutrition; F33.3 Major depressive disorder, recurrent, severe with psychotic symptoms; R45.850 Homicidal ideations; E87.6 Hypokalemia; E83.42 Hypomagnesemia; Y90.1 Blood alcohol level of 20-39 mg/100 ml; K74.60 Unspecified cirrhosis of liver; F41.9 Anxiety disorder, unspecified; F17.200 Nicotine dependence, unspecified, uncomplicated
CPT/HCPCS: 36415; 80048; 80053; 80306; 81001; 82607; 82746; 83690; 83735; 84443; 85025; 85610; 85730; 93005; 93010; 96361; 96365; 96375; 99285-25; A9270; A9270-GY; G0480; J2060; J2405; J2765; J3411; J3475; J7030; J7040; J7042

== ENCOUNTER 2017-08-28 14:23 | Emergency (ER) | payer MEDICAID ==
[2017-08-28 14:41] VITALS: BP 150/94
--- NOTE | 2017-08-28 15:37 | EDM.PDOCBH ---
ED HPI GENERAL MEDICAL PROBLEM - General Chief Complaint: Drug or Alcohol Abuse Stated Complaint: ALCOHOL DETOX Time Seen by Provider: 08/28/17 15:00 Source of Information: Reports: Patient, Old Records (recent hospitalization) History Limitations: Reports: No Limitations - History of Present Illness INITIAL COMMENTS - FREE TEXT/NARRATIVE: 47-year-old female presents for evaluation and treatment of alcohol detox. Review the patient's records show that she was hospitalized in May for detox. After an 8 days stay at out facility she was sent to the [facility], which she reports she was there for 7 days. She was seen by It[facility] Orona and Dr. Mortensen while here in the hospital. Committal paperwork was filed by Itz Orona. Patient reports since leaving the hospital she started drinking around the holidays. Patient reports that she did attend a few AA meetings prior to drinking alcohol again. She complained extensively about the lack of resources in [place] and [place]. She has been drinking up to 2 bottles of wine per day. Last drink was about 2 hours ago. She states that she has seen Dr. Chiu, family medicine in [place] on Tuesday who instructed her not to quit "cold turkey ". Patient she reports that she talked to [facility] services who instructed her to come to the ER. She also reports that she was instructed to come to the ER by her family medicine provider. 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 Review of patient's records show that she had one seizure in 2014. Records suggest that she has been in multiple different inpatient and outpatient facilities for alcohol detox. She was previously living in [place] up until about March when she relocated to [place]. Their current plan is to move back to [place] on September 15. She is here requesting that we detox her so she can go back to [place] on September 15. Patient is requesting that we admit her for detox here. She is unwilling to go to the [facility]. She states that her "rights were violated by this hospital ". She was told that she should've never gone to the [facility]. I informed her that I will screen her here in the ER. If I feel she needs to be admitted to the hospital she will likely seen Dr. Mortensen and Itz Orona again. I cannot guarantee her that she will not go to the [facility]. It is likely given that she has failed treatment again she would likely require inpatient treatment again. At this point and our conversation patient got very upset and eloped from the ER. I did not have a chance to examine her or complete my interview with her. She was very hostile and not forthcoming with information when I interviewed her. - Related Data Allergies Allergy/AdvReac Type Severity Reaction Status Date / Time No Known Allergies Allergy Verified 05/22/17 22:08 Home Meds: Home Meds Multivitamin [Multi-Vitamin Daily] 1 tab PO DAILY 05/24/17 [History] Vitamin E 400 unit PO BID 05/24/17 [History] Citalopram [Celexa] 10 mg PO BEDTIME #30 tablet 05/30/17 [Rx] Folic Acid 1 mg PO DAILY #30 tablet 05/30/17 [Rx] Ibuprofen [IJD: Ibuprofen] 600 mg PO Q8H PRN #30 tablet 05/30/17 [Rx] Thiamine [Vitamin B-1] 100 mg PO DAILY #30 tablet 05/30/17 [Rx] Citalopram Hydrobromide [Celexa] 20 mg PO DAILY 08/28/17 [History] Hyroxyzine 25 mg PO Q8H PRN 08/28/17 [History] Naltrexone 50 mg PO DAILY PRN 08/28/17 [History] cloNIDine [Catapres-TTS 1] 0.1 mg PO BEDTIME 08/28/17 [History] Past Medical History Gastrointestinal History: Reports: Other (See Below) Other Gastrointestinal History: liver disease Musculoskeletal History: Reports: Other (See Below) Other Musculoskeletal History: left knee surgury ACL repair and minicus Psychiatric History: Reports: Addiction, Anxiety, Bipolar, Depression, PTSD - Past Surgical History Female Surgical History: Reports: Tubal Ligation Social & Family History - Tobacco Use Smoking Status *Q: Current Every Day Smoker Years of Tobacco use: 30 Packs/Tins Daily: 0.5 Used Tobacco, but Quit: No Second Hand Smoke Exposure: Yes - Caffeine Use Caffeine Use: Reports: Soda, Tea - Alcohol Use Days Per Week of Alcohol Use: 7 Number of Drinks Per Day: 12 Total Drinks Per Week: 84 - Recreational Drug Use Recreational Drug Use: No Drug Use in Last 12 Months: No Recreational Drug Type: Reports: Marijuana/Hashish - Living Situation & Occupation Living situation: Reports: with Significant Other (boyfriend.) Occupation: Unemployed ED [facility] GENERAL - Review of Systems Review Of Systems: ROS reveals no pertinent complaints other than HPI. ED EXAM, BEHAVIORAL HEALTH - Physical Exam Exam: Not Obtained COURSE, BEHAVIORAL HEALTH COMP - Course Vital Signs: Last Vital Signs Temp 36.8 C 08/28/17 14:38 Pulse 79 08/28/17 14:38 Resp BP 150/94 H 08/28/17 14:38 Pulse Ox 95 08/28/17 14:38 Departure - Departure Time of Disposition: 15:36 Disposition: Eloped 07 Condition: Undetermined Clinical Impression: Alcohol abuse - Discharge Information Additional Instructions: Patient eloped prior to completion of interview and examination.
== END 2017-08-28 15:25 | disposition left against medical advice (07) ==
LOC: SUPCPDRO 14:23 → JD.ED 14:23
DX: F10.10 Alcohol abuse, uncomplicated (principal); F31.9 Bipolar disorder, unspecified; F17.210 Nicotine dependence, cigarettes, uncomplicated; Z79.899 Other long term (current) drug therapy
CPT/HCPCS: 99281; 99284